=== PATIENT | female | born 1930 | race Caucasian/White ===

== ENCOUNTER → 2016-08-30 | Outpatient (CLI) | payer MEDICARE, MEDICAID ==
[~2016-08-30] MED LIST: AMA4; ASPI-867; BARIUM SULFATE 450ML ORAL SUSP ONE; CALC500T62; DILT-30; EZET10TA; IOHEXOL-300 100 ML BOTTLE ONE; LISI-186; LOVA20TA2; MESA400T14; METO50TA95; PANT40VI; SODIUM CHLORIDE 0.9% 10ML VIAL ONE; TIOT18CA3
== END | disposition home or self-care (01) ==
LOC: CT 08:21
PROVIDERS: ATTEND Internal Medicine Gastroenterology
DX: J44.9 Chronic obstructive pulmonary disease, unspecified (principal); R10.9 Unspecified abdominal pain; K76.89 Other specified diseases of liver
CPT/HCPCS: 74177; A4216; Q9967

== ENCOUNTER 2018-06-25 07:16 | Inpatient (IN) | payer MEDICARE, MEDICAID ==
[~2018-06-25] VITALS: Ht 157.5 cm; Wt 49.0 kg
[~2018-06-25 07:16] MED LIST changes: +ASA5EC; -ASPI-867; -BARIUM SULFATE 450ML ORAL SUSP ONE; -DILT-30; +DILT180C93; -EZET10TA; -IOHEXOL-300 100 ML BOTTLE ONE; +PILO15DR6 OP; -SODIUM CHLORIDE 0.9% 10ML VIAL ONE; +TIMO15DR12 OP; +ZET10
[2018-06-25] MEDS ORDERED: KETOROLAC 15MG/ML VIAL IV ONE (08:00)
[2018-06-25] MEDS ORDERED: DEXT 5%/0.45% NACL KCL 20MEQ/L 1,000 ML IV ONE (08:00)
[2018-06-25 08:26] LABS: HEMATOCRIT. 39.6 % (36.0-48.0); MEAN CORPUSCULAR HEMOGLOBIN 28.4 pg (28.0-32.0); MEAN CORPUSCULAR VOLUME 86.6 fL (81.0-99.0); MEAN PLATELET VOLUME 8.1 fl (7.4-10.4); PLATELET 475 x1000/uL (130-400); RED BLOOD CELL COUNT 4.57 mill/uL (4.2-5.4); RED CELL DISTRIBUTION WIDTH 18.3 % (11.6-14.6)
[2018-06-25 08:32] LABS: CHLORIDE 89 mEq/L (98-107)
[2018-06-25 08:38] LABS: INR 1.5; PARTIAL THROMBOPLASTIN TIME 33.2 sec (23.4-31.0); PROTHROMBIN TIME 15.3 sec (9.1-11.1)
[2018-06-25 09:05] LABS: PLATELET ESTIMATE INCREASED
[2018-06-25] MEDS ORDERED: MORPHINE SULFATE 2 MG/ML CPJ (NOT FOR IM USE) IV ONE (09:15)
[2018-06-25] MEDS ORDERED: MORPHINE SULFATE 10 MG/ML CPJ IV ONE (09:30)
[2018-06-25 10:30] VITALS: BP 118/52
[2018-06-25] MEDS ORDERED: PHYTONADIONE 10MG/ML AMP SUBCUT SCH (11:15)
[2018-06-25] MEDS: PANTOPRAZOLE SODIUM 40 MG/VIAL IV SCH (11:54)
[2018-06-25] MEDS: ENOXAPARIN 40MG/0.4ML SYR SUBCUT SCH (11:55)
[2018-06-25] MEDS: UMECLIDINIUM BROMIDE 1 INH BLST.W.DEV IH SCH (12:00)
[2018-06-25] MEDS: BLOOD SUGAR DIAGNOSTIC STRIP TEST SCH ×3 (12:04→21:56)
[2018-06-25] MEDS: INSULIN LISPRO 100 UNITS/ML SUBCUT SCH ×3 (12:58→21:00)
[2018-06-25] MEDS: SODIUM CHL 0.45% + KCL 20MEQ/L 1,000 ML IV SCH ×2 (13:00→22:01)
[2018-06-25] MEDS ORDERED: MIRA25TA MT (14:41)
[2018-06-25] MEDS ORDERED: OMEP10CA4 MT (14:41)
[2018-06-25] MEDS ORDERED: METF-414 MT (14:41)
[2018-06-25] MEDS ORDERED: FESO4TAB MT (14:41)
[2018-06-25] MEDS ORDERED: MESA0.37 MT (14:41)
[2018-06-25] MEDS ORDERED: OFLO5DRO3 RIGHTEYE (14:42)
[2018-06-25] MEDS: DILTIAZEM HCL 60MG TABLET PO SCH ×2 (15:57→21:57)
[2018-06-25] MEDS: FLUTICASONE/VILANTEROL 200-25 BLST.W.DEV ORI SCH (15:57)
[2018-06-25 17:37] LABS: CLARITY URINE TURBID (CLEAR); COLOR URINE DARK YELLOW (YELLOW); KETONES URINE 4+ (NEGATIVE); LEUKOCYTE ESTERASE URINE 2+ (NEGATIVE); NITRITE URINE NEGATIVE (NEGATIVE); OCCULT BLOOD URINE 2+ (NEGATIVE); PROTEIN URINE 2+ (NEGATIVE); SPECIFIC GRAVITY URINE 1.025 (1.005-1.030)
[2018-06-25 20:00] VITALS: BP 115/46
[2018-06-25] MEDS: HYDROCODONE/ACETAMINOPHEN 5/325MG TABLET PO PRN (20:11)
[2018-06-25] MEDS: ATORVASTATIN CALCIUM 20MG TABLET PO SCH (20:11)
[2018-06-25] MEDS: TIMOLOL MALEATE 0.25% OPHTH DROPS 5ML EACHEYE SCH (20:11)
[2018-06-25] MEDS: PILOCARPINE HCL 1% OPHTH DROPS 15ML BOTHEYE SCH (20:12)
[2018-06-26] VITALS: BP 110/44
[2018-06-26 04:00] VITALS: BP 127/51
[2018-06-26] MEDS: DILTIAZEM HCL 60MG TABLET PO SCH ×3 (05:02→22:31)
[2018-06-26 06:26] LABS: INR 1.2; PROTHROMBIN TIME 12.3 sec (9.1-11.1)
[2018-06-26] MEDS: INSULIN LISPRO 100 UNITS/ML SUBCUT SCH ×5 (06:26→22:19)
[2018-06-26] MEDS: BLOOD SUGAR DIAGNOSTIC STRIP TEST SCH ×4 (06:26→21:52)
[2018-06-26 06:41] LABS: HEMATOCRIT. 34.1 % (36.0-48.0); HEMOGLOBIN. 11.2 g/dL (12.0-16.0); MEAN CORPUSCULAR HEMOGLOBIN 28.5 pg (28.0-32.0); MEAN CORPUSCULAR VOLUME 86.9 fL (81.0-99.0); MEAN PLATELET VOLUME 8.7 fl (7.4-10.4); PLATELET 370 x1000/uL (130-400); RED BLOOD CELL COUNT 3.93 mill/uL (4.2-5.4); RED CELL DISTRIBUTION WIDTH 18.5 % (11.6-14.6)
[2018-06-26 06:44] LABS: CHLORIDE 92 mEq/L (98-107)
[2018-06-26 06:50] LABS: TOTAL IRON BINDING CAPACITY 333 ug/dL (250-450)
[2018-06-26 06:51] LABS: LDL CHOLESTEROL 46 mg/dL (5-100)
[2018-06-26 06:52] LABS: HDL CHOLESTEROL 20 mg/dL (40-59)
[2018-06-26 08:00] VITALS: BP 114/43
[2018-06-26] MEDS: ENOXAPARIN 40MG/0.4ML SYR SUBCUT SCH (08:26)
[2018-06-26] MEDS: UMECLIDINIUM BROMIDE 1 INH BLST.W.DEV IH SCH (09:00)
[2018-06-26] MEDS: PANTOPRAZOLE SODIUM 40 MG/VIAL IV SCH (09:07)
[2018-06-26] MEDS: TIMOLOL MALEATE 0.25% OPHTH DROPS 5ML EACHEYE SCH ×2 (09:08→20:12)
[2018-06-26] MEDS: PILOCARPINE HCL 1% OPHTH DROPS 15ML BOTHEYE SCH ×2 (09:08→20:12)
[2018-06-26] MEDS: FLUTICASONE/VILANTEROL 200-25 BLST.W.DEV ORI SCH (09:08)
[2018-06-26] MEDS: SODIUM CHL 0.45% + KCL 20MEQ/L 1,000 ML IV SCH ×2 (09:16→20:11)
[2018-06-26] MEDS: HYDROCODONE/ACETAMINOPHEN 5/325MG TABLET PO PRN (11:09)
[2018-06-26 12:00] VITALS: BP 110/43
[2018-06-26 16:00] VITALS: BP 105/48
[2018-06-26 16:00] LABS: PLATELET ESTIMATE NORMAL
[2018-06-26] MEDS ORDERED: CHLORHEXIDINE GLUCONATE 4% EXTERNAL USE TOP NR (16:00)
[2018-06-26] MEDS: PIPERACILLIN/TAZ 2.25G PREMIX 50 ML IV SCH ×2 (18:02→21:52)
[2018-06-26 20:00] VITALS: BP 124/58
[2018-06-26] MEDS: HYDROMORPHONE HCL/PF 2MG/ML CPJ IV PRN (20:18)
[2018-06-26] MEDS: ATORVASTATIN CALCIUM 20MG TABLET PO SCH (21:52)
[2018-06-27] VITALS: BP 134/59
[2018-06-27] MEDS: PIPERACILLIN/TAZ 2.25G PREMIX 50 ML IV SCH ×4 (03:12→22:07)
[2018-06-27 04:00] VITALS: BP 123/57
[2018-06-27] MEDS: SODIUM CHL 0.45% + KCL 20MEQ/L 1,000 ML IV SCH ×2 (04:08→14:00)
[2018-06-27] MEDS: HYDROMORPHONE HCL/PF 2MG/ML CPJ IV PRN ×3 (04:18→17:54)
[2018-06-27 04:50] LABS: CHLORIDE 89 mEq/L (98-107)
[2018-06-27 05:03] LABS: PHOSPHORUS 1.8 mg/dL (2.5-4.9)
[2018-06-27] MEDS: DILTIAZEM HCL 60MG TABLET PO SCH (05:49)
[2018-06-27] MEDS ORDERED: MAGNESIUM 2 G PREMIX 50 ML IV SCH (06:00)
[2018-06-27 06:17] LABS: HEMATOCRIT. 34.7 % (36.0-48.0); HEMOGLOBIN. 11.6 g/dL (12.0-16.0); MEAN CORPUSCULAR HEMOGLOBIN 28.8 pg (28.0-32.0); MEAN CORPUSCULAR VOLUME 86.4 fL (81.0-99.0); MEAN PLATELET VOLUME 8.6 fl (7.4-10.4); PLATELET 368 x1000/uL (130-400); RED BLOOD CELL COUNT 4.02 mill/uL (4.2-5.4); RED CELL DISTRIBUTION WIDTH 17.5 % (11.6-14.6)
[2018-06-27] MEDS: BLOOD SUGAR DIAGNOSTIC STRIP TEST SCH ×4 (07:44→21:55)
[2018-06-27 08:00] VITALS: BP 119/51
[2018-06-27] MEDS ORDERED: ENOXAPARIN 30MG/0.3ML SYR SUBCUT SCH (09:00)
[2018-06-27] MEDS: PANTOPRAZOLE SODIUM 40 MG/VIAL IV SCH (09:34)
[2018-06-27] MEDS: UMECLIDINIUM BROMIDE 1 INH BLST.W.DEV IH SCH (09:35)
[2018-06-27] MEDS: FLUTICASONE/VILANTEROL 200-25 BLST.W.DEV ORI SCH (09:37)
[2018-06-27] MEDS: TIMOLOL MALEATE 0.25% OPHTH DROPS 5ML EACHEYE SCH ×2 (09:38→21:05)
[2018-06-27] MEDS: PILOCARPINE HCL 1% OPHTH DROPS 15ML BOTHEYE SCH ×2 (09:38→21:05)
[2018-06-27 12:00] VITALS: BP 98/45
[2018-06-27] MEDS: INSULIN LISPRO 100 UNITS/ML SUBCUT SCH ×3 (13:49→22:48)
[2018-06-27 16:00] VITALS: BP 113/50
[2018-06-27 17:34] LABS: PLATELET ESTIMATE NORMAL
[2018-06-27 20:00] VITALS: BP 100/46
[2018-06-27] MEDS ORDERED: POTASSIUM PHOS,M-BASIC-D-BASIC 20 MMOL in DEXT 5% WATER 243.3333 ML IV ONE (21:00)
[2018-06-27] MEDS: ATORVASTATIN CALCIUM 20MG TABLET PO SCH (21:05)
[2018-06-27] MEDS: METOPROLOL TARTRATE 50MG TABLET PO SCH (21:12)
[2018-06-28] VITALS: BP 125/59
[2018-06-28] MEDS: HYDROCODONE/ACETAMINOPHEN 5/325MG TABLET PO PRN (00:59)
[2018-06-28] MEDS: SODIUM CHL 0.45% + KCL 20MEQ/L 1,000 ML IV SCH ×2 (01:02→20:42)
[2018-06-28] MEDS: PIPERACILLIN/TAZ 2.25G PREMIX 50 ML IV SCH ×4 (03:23→23:48)
[2018-06-28 04:00] VITALS: BP 113/44
[2018-06-28 05:48] LABS: HEMATOCRIT. 35.7 % (36.0-48.0); HEMOGLOBIN. 11.9 g/dL (12.0-16.0); MEAN CORPUSCULAR HEMOGLOBIN 28.6 pg (28.0-32.0); PLATELET 396 x1000/uL (130-400); RED BLOOD CELL COUNT 4.16 mill/uL (4.2-5.4)
[2018-06-28 05:50] LABS: CHLORIDE 86 mEq/L (98-107)
[2018-06-28 05:58] LABS: D-DIMER 2.35 mg/L FEU (<0.50); INR 1.2; PROTHROMBIN TIME 12.2 sec (9.1-11.1)
[2018-06-28] MEDS: BLOOD SUGAR DIAGNOSTIC STRIP TEST SCH ×4 (06:35→20:52)
[2018-06-28] MEDS ORDERED: PROPOFOL 200MG/20ML VIAL IV ONE (07:02)
[2018-06-28] MEDS ORDERED: ROCURONIUM BROMIDE 10MG/ML VIAL 5ML IV ONE (07:02)
[2018-06-28] MEDS ORDERED: FENTANYL CITRATE/PF 50MCG/ML 2ML VIAL ONE (07:02)
[2018-06-28] MEDS ORDERED: MIDAZOLAM HCL 2 MG/2 ML VIAL ONE (07:03)
[2018-06-28] MEDS ORDERED: DEXAMETHASONE 4MG/ML 1ML VIAL ONE (07:09)
[2018-06-28] MEDS ORDERED: METOCLOPRAMIDE HCL 10MG/2ML VIAL ONE (07:09)
[2018-06-28] MEDS ORDERED: BUPIVACAINE HCL/PF 0.25% (2.5MG/ML) 10ML ONE (07:31)
[2018-06-28] MEDS ORDERED: BACITRACIN 15GM TUBE TOP ONE (07:43)
[2018-06-28] MEDS ORDERED: BUPIVACAINE/EPINEPH/PF 0.25%/0.0005 10ML ONE (07:43)
[2018-06-28] MEDS ORDERED: BACITRACIN 50,000 UNITS/VIAL ONE (07:43)
[2018-06-28] MEDS ORDERED: VANCOMYCIN HCL 500 MG/VIAL ONE ×2 (07:44→09:15)
[2018-06-28] MEDS ORDERED: NORMAL SALINE 0.9% 10 ML SYR ONE (07:45)
[2018-06-28] MEDS ORDERED: INSULIN REGULAR (HUMULIN R) 300UNITS/3ML ONE (07:47)
[2018-06-28] MEDS: INSULIN LISPRO 100 UNITS/ML SUBCUT SCH ×4 (07:50→20:52)
[2018-06-28] MEDS ORDERED: ONDANSETRON HCL 4MG/2ML INJ IV PRN (08:30)
[2018-06-28] MEDS ORDERED: HYDROMORPHONE HCL/PF 2MG/ML CPJ IV PRN ×2 (08:30→10:30)
[2018-06-28] MEDS ORDERED: PIPERACILLIN/TAZ 2.25G PREMIX 50 ML IV SCH (08:30)
[2018-06-28] MEDS ORDERED: HYDROCODONE/ACETAMINOPHEN 5/325MG TABLET PO PRN ×2 (08:30)
[2018-06-28] MEDS: UMECLIDINIUM BROMIDE 1 INH BLST.W.DEV IH SCH (09:00)
[2018-06-28] MEDS: TIMOLOL MALEATE 0.25% OPHTH DROPS 5ML EACHEYE SCH ×2 (09:00→20:42)
[2018-06-28] MEDS: PANTOPRAZOLE SODIUM 40 MG/VIAL IV SCH (09:00)
[2018-06-28] MEDS: FLUTICASONE/VILANTEROL 200-25 BLST.W.DEV ORI SCH (09:00)
[2018-06-28] MEDS: PILOCARPINE HCL 1% OPHTH DROPS 15ML BOTHEYE SCH ×2 (09:00→20:42)
[2018-06-28] MEDS: METOPROLOL TARTRATE 50MG TABLET PO SCH ×2 (09:00→20:42)
[2018-06-28] MEDS ORDERED: PHENYLEPHRINE HCL 10 MG/ML 1ML (IV VIAL) IV ONE (09:25)
[2018-06-28] MEDS ORDERED: GLYCOPYRROLATE 0.2 MG/ML 2ML VIAL ONE (09:53)
[2018-06-28] MEDS ORDERED: NEOSTIGMINE METHYLSULFATE 1MG/ML 10 ML VIAL ONE (09:53)
[2018-06-28] MEDS ORDERED: MEPERIDINE HCL/PF 25MG/ML CPJ IV PRN (10:30)
[2018-06-28] MEDS ORDERED: ACETAMINOPHEN 325MG TABLET PO SCH (10:30)
[2018-06-28 13:07] LABS: PLATELET ESTIMATE NORMAL
[2018-06-28 13:30] VITALS: BP 98/46
[2018-06-28 14:35] LABS: BG BASE EXCESS 4.6 mmol/L (-2.0-2.0); BG CARBOXYHEMOGLOBIN 1.3 % (0.5-1.5); BG DEOXYHEMOGLOBIN 5.7 % (0.0-5.0); BG FRACTION INSPIRED OXYGEN 2.5; BG HCO3 ACT 29.8 mmol/L (22.0-26.0); BG METHEMOGLOBIN 0.3 % (0.0-1.5); BG OXYGEN SATURATION 94.2 % (92.0-98.5); BG OXYHEMOGLOBIN 92.7 % (94.0-97.0); BG PO2 70.7 mmHg (75.0-100.0); BG SAMPLE SITE RIGHT BRACHIAL; BG TOTAL HEMOGLOBIN 11.8 g/dL (12.0-18.0); BG VENT MODE NASAL CANNULA
[2018-06-28 16:00] VITALS: BP 129/77
[2018-06-28] MEDS: ACETAMINOPHEN 325MG TABLET PO PRN (18:41)
[2018-06-28] MEDS: ATORVASTATIN CALCIUM 20MG TABLET PO SCH (20:42)
[2018-06-28 20:43] VITALS: BP 99/42
[2018-06-29 00:36] VITALS: BP 108/54
[2018-06-29] MEDS: PIPERACILLIN/TAZ 2.25G PREMIX 50 ML IV SCH (03:55)
[2018-06-29 04:00] VITALS: BP 109/48
[2018-06-29] MEDS: BLOOD SUGAR DIAGNOSTIC STRIP TEST SCH ×4 (06:40→21:52)
[2018-06-29 07:47] LABS: HEMATOCRIT. 31.8 % (36.0-48.0); HEMOGLOBIN. 10.6 g/dL (12.0-16.0); MEAN CORPUSCULAR HEMOGLOBIN 29.1 pg (28.0-32.0); MEAN CORPUSCULAR VOLUME 86.9 fL (81.0-99.0); MEAN PLATELET VOLUME 8.6 fl (7.4-10.4); PLATELET 345 x1000/uL (130-400); RED BLOOD CELL COUNT 3.66 mill/uL (4.2-5.4)
[2018-06-29] MEDS: INSULIN LISPRO 100 UNITS/ML SUBCUT SCH ×4 (07:50→22:03)
[2018-06-29] MEDS ORDERED: MAGNESIUM 2 G PREMIX 50 ML IV SCH (08:00)
[2018-06-29] MEDS: METOPROLOL TARTRATE 50MG TABLET PO SCH ×2 (09:00→21:00)
[2018-06-29] MEDS: TIMOLOL MALEATE 0.25% OPHTH DROPS 5ML EACHEYE SCH ×2 (09:00→21:52)
[2018-06-29] MEDS: PILOCARPINE HCL 1% OPHTH DROPS 15ML BOTHEYE SCH ×2 (09:00→21:51)
[2018-06-29] MEDS: UMECLIDINIUM BROMIDE 1 INH BLST.W.DEV IH SCH (09:00)
[2018-06-29] MEDS ORDERED: FAMOTIDINE 20MG/2ML VIAL IV SCH (09:00)
[2018-06-29] MEDS: FLUTICASONE/VILANTEROL 200-25 BLST.W.DEV ORI SCH (09:00)
[2018-06-29] MEDS: LACTULOSE 20G/30ML UDC PO SCH ×3 (10:12→18:47)
[2018-06-29 10:17] LABS: CHLORIDE 90 mEq/L (98-107)
[2018-06-29] MEDS: ENOXAPARIN 30MG/0.3ML SYR SUBCUT SCH (10:17)
[2018-06-29 10:27] LABS: PHOSPHORUS 2.1 mg/dL (2.5-4.9)
[2018-06-29 12:00] VITALS: BP 125/49
[2018-06-29 13:22] LABS: PLATELET ESTIMATE NORMAL
[2018-06-29 15:49] VITALS: BP 111/54
[2018-06-29] MEDS: DOCUSATE SODIUM 100MG CAPSULE PO SCH (18:48)
[2018-06-29 20:00] VITALS: BP 110/53
[2018-06-29] MEDS: ATORVASTATIN CALCIUM 20MG TABLET PO SCH (21:52)
[2018-06-29] MEDS: FAMOTIDINE 20MG TABLET PO SCH (21:52)
[2018-06-29] MEDS: POLYETHYLENE GLYCOL 3350 (17GM) 1 DOSE PACK PO SCH (21:52)
[2018-06-30] VITALS: BP 116/58
[2018-06-30 04:00] VITALS: BP 119/57
[2018-06-30 07:01] LABS: HEMATOCRIT. 26.9 % (36.0-48.0); MEAN CORPUSCULAR HEMOGLOBIN 28.9 pg (28.0-32.0); MEAN CORPUSCULAR VOLUME 86.4 fL (81.0-99.0); PLATELET 332 x1000/uL (130-400); RED BLOOD CELL COUNT 3.11 mill/uL (4.2-5.4); RED CELL DISTRIBUTION WIDTH 17.7 % (11.6-14.6)
[2018-06-30 07:10] LABS: CHLORIDE 90 mEq/L (98-107)
[2018-06-30] MEDS: BLOOD SUGAR DIAGNOSTIC STRIP TEST SCH ×4 (07:28→21:30)
[2018-06-30] MEDS: INSULIN LISPRO 100 UNITS/ML SUBCUT SCH ×4 (07:28→22:12)
[2018-06-30] MEDS: METOPROLOL TARTRATE 50MG TABLET PO SCH ×2 (08:23→21:00)
[2018-06-30] MEDS: DOCUSATE SODIUM 100MG CAPSULE PO SCH ×2 (08:24→17:25)
[2018-06-30] MEDS: FAMOTIDINE 20MG TABLET PO SCH ×2 (08:24→21:27)
[2018-06-30] MEDS: PILOCARPINE HCL 1% OPHTH DROPS 15ML BOTHEYE SCH ×2 (08:25→21:30)
[2018-06-30] MEDS: TIMOLOL MALEATE 0.25% OPHTH DROPS 5ML EACHEYE SCH ×2 (08:25→21:29)
[2018-06-30] MEDS: UMECLIDINIUM BROMIDE 1 INH BLST.W.DEV IH SCH (08:26)
[2018-06-30] MEDS: FLUTICASONE/VILANTEROL 200-25 BLST.W.DEV ORI SCH (08:26)
[2018-06-30] MEDS: ENOXAPARIN 30MG/0.3ML SYR SUBCUT SCH (08:27)
[2018-06-30 08:30] VITALS: BP 122/60
[2018-06-30] MEDS ORDERED: POTASSIUM BICARB/CIT ACID 25 MEQ TABLET.EFF PO SCH (11:00)
[2018-06-30 11:19] LABS: PLATELET ESTIMATE NORMAL
[2018-06-30] MEDS: HYDROMORPHONE HCL/PF 2MG/ML CPJ IV PRN (12:00)
[2018-06-30] MEDS ORDERED: MAGNESIUM 2 G PREMIX 50 ML IV SCH (12:00)
[2018-06-30 12:14] VITALS: BP 104/51
[2018-06-30] MEDS ORDERED: BISACODYL 10MG SUPP PR SCH (13:00)
[2018-06-30] MEDS: LACTULOSE 20G/30ML UDC PO SCH ×3 (13:27→21:27)
[2018-06-30] MEDS: MESALAMINE 400 MG CAPSULE.DR PO SCH ×2 (13:29→18:34)
[2018-06-30 16:07] VITALS: BP 96/45
[2018-06-30 20:00] VITALS: BP 104/53
[2018-06-30] MEDS: OFEV 100 MG PO SCH (20:40)
[2018-06-30] MEDS: POLYETHYLENE GLYCOL 3350 (17GM) 1 DOSE PACK PO SCH ×2 (21:27→21:31)
[2018-06-30] MEDS: ATORVASTATIN CALCIUM 20MG TABLET PO SCH (21:27)
[2018-07-01] VITALS: BP 124/59
[2018-07-01 04:00] VITALS: BP 129/60
[2018-07-01 04:10] LABS: 25-HYDROXY VITAMIN D3 2.5 ng/mL (.)
[2018-07-01 05:40] LABS: CHLORIDE 87 mEq/L (98-107)
[2018-07-01] MEDS: BLOOD SUGAR DIAGNOSTIC STRIP TEST SCH ×4 (07:30→21:32)
[2018-07-01] MEDS: INSULIN LISPRO 100 UNITS/ML SUBCUT SCH ×4 (07:31→21:34)
[2018-07-01 08:00] VITALS: BP 127/61
[2018-07-01] MEDS: MESALAMINE 400 MG CAPSULE.DR PO SCH ×3 (08:14→18:10)
[2018-07-01] MEDS: FAMOTIDINE 20MG TABLET PO SCH ×2 (08:14→21:31)
[2018-07-01] MEDS: OFEV 100 MG PO SCH ×2 (08:15→20:25)
[2018-07-01] MEDS: TIMOLOL MALEATE 0.25% OPHTH DROPS 5ML EACHEYE SCH ×2 (08:16→21:29)
[2018-07-01] MEDS: FLUTICASONE/VILANTEROL 200-25 BLST.W.DEV ORI SCH (08:16)
[2018-07-01] MEDS: PILOCARPINE HCL 1% OPHTH DROPS 15ML BOTHEYE SCH ×2 (08:16→21:29)
[2018-07-01] MEDS: UMECLIDINIUM BROMIDE 1 INH BLST.W.DEV IH SCH (08:17)
[2018-07-01] MEDS: METOPROLOL TARTRATE 50MG TABLET PO SCH ×2 (08:22→21:32)
[2018-07-01] MEDS: DOCUSATE SODIUM 100MG CAPSULE PO SCH ×2 (09:00→17:00)
[2018-07-01 12:00] VITALS: BP 134/62
[2018-07-01] MEDS: MAGNESIUM OXIDE 400MG TABLET PO SCH ×2 (13:12→18:10)
[2018-07-01] MEDS: HYDROMORPHONE HCL/PF 2MG/ML CPJ IV PRN (13:12)
[2018-07-01] MEDS ORDERED: MAGNESIUM 2 G PREMIX 50 ML IV NR (14:00)
[2018-07-01 16:00] VITALS: BP 131/72
[2018-07-01 20:00] VITALS: BP 138/63
[2018-07-01] MEDS: ATORVASTATIN CALCIUM 20MG TABLET PO SCH (21:30)
[2018-07-01] MEDS: POLYETHYLENE GLYCOL 3350 (17GM) 1 DOSE PACK PO SCH (21:37)
[2018-07-02] VITALS: BP 139/61
[2018-07-02 04:00] VITALS: BP 120/82
[2018-07-02 06:19] LABS: CHLORIDE 87 mEq/L (98-107)
[2018-07-02 06:25] LABS: PHOSPHORUS 1.6 mg/dL (2.5-4.9)
[2018-07-02] MEDS: BLOOD SUGAR DIAGNOSTIC STRIP TEST SCH ×4 (06:28→21:17)
[2018-07-02 06:30] LABS: BASOPHILS % 0.3 % (0.0-2.0); EOSINOPHILS % 0.1 % (0.0-5.0); LYMPHOCYTES % 8.9 % (20.0-50.0); MEAN CORPUSCULAR HEMOGLOBIN 28.6 pg (28.0-32.0); MEAN CORPUSCULAR VOLUME 86.6 fL (81.0-99.0); MEAN PLATELET VOLUME 8.1 fl (7.4-10.4); NEUTROPHILS % 86.7 % (40.0-76.0); PLATELET 408 x1000/uL (130-400); RED BLOOD CELL COUNT 3.69 mill/uL (4.2-5.4); RED CELL DISTRIBUTION WIDTH 17.6 % (11.6-14.6)
[2018-07-02 07:33] LABS: HEMATOCRIT. 31.9 % (36.0-48.0); HEMOGLOBIN. 10.6 g/dL (12.0-16.0)
[2018-07-02] MEDS: INSULIN LISPRO 100 UNITS/ML SUBCUT SCH ×4 (07:51→21:00)
[2018-07-02] MEDS: OFEV 100 MG PO SCH ×2 (07:52→21:21)
[2018-07-02] MEDS: MAGNESIUM OXIDE 400MG TABLET PO SCH ×2 (07:52→17:37)
[2018-07-02] MEDS: DOCUSATE SODIUM 100MG CAPSULE PO SCH ×2 (07:52→17:00)
[2018-07-02] MEDS: MESALAMINE 400 MG CAPSULE.DR PO SCH ×3 (07:57→17:00)
[2018-07-02] MEDS: METOPROLOL TARTRATE 50MG TABLET PO SCH ×2 (07:57→21:19)
[2018-07-02] MEDS: FAMOTIDINE 20MG TABLET PO SCH ×2 (07:57→21:17)
[2018-07-02] MEDS: PILOCARPINE HCL 1% OPHTH DROPS 15ML BOTHEYE SCH ×2 (07:57→21:19)
[2018-07-02] MEDS: TIMOLOL MALEATE 0.25% OPHTH DROPS 5ML EACHEYE SCH ×2 (07:58→21:19)
[2018-07-02] MEDS: FLUTICASONE/VILANTEROL 200-25 BLST.W.DEV ORI SCH (07:58)
[2018-07-02] MEDS: UMECLIDINIUM BROMIDE 1 INH BLST.W.DEV IH SCH (07:58)
[2018-07-02 08:00] VITALS: BP 137/71
[2018-07-02 12:00] VITALS: BP 117/63
[2018-07-02 16:00] VITALS: BP 112/61
[2018-07-02] MEDS: ASPIRIN 81MG TABLET PO SCH (17:38)
[2018-07-02] MEDS ORDERED: MAGNESIUM 2 G PREMIX 50 ML IV NR (18:30)
[2018-07-02 20:00] VITALS: BP 129/64
[2018-07-02] MEDS: POLYETHYLENE GLYCOL 3350 (17GM) 1 DOSE PACK PO SCH (21:00)
[2018-07-02] MEDS: ATORVASTATIN CALCIUM 20MG TABLET PO SCH (21:17)
[2018-07-02] MEDS ORDERED: SODIUM PHOS,M-BASIC-D-BASIC 30 MM in DEXT 5% WATER 500 ML IV NR (22:00)
[2018-07-03] VITALS: BP 136/69
[2018-07-03 04:00] VITALS: BP 130/60
[2018-07-03 06:34] LABS: BASOPHILS % 0.2 % (0.0-2.0); EOSINOPHILS % 0.1 % (0.0-5.0); HEMATOCRIT. 33.8 % (36.0-48.0); LYMPHOCYTES % 8.5 % (20.0-50.0); MEAN CORPUSCULAR HEMOGLOBIN 28.1 pg (28.0-32.0); MEAN CORPUSCULAR VOLUME 86.3 fL (81.0-99.0); MEAN PLATELET VOLUME 8.6 fl (7.4-10.4); MONOCYTES % 4.9 % (2.0-8.0); NEUTROPHILS % 86.3 % (40.0-76.0); PLATELET 398 x1000/uL (130-400); RED BLOOD CELL COUNT 3.91 mill/uL (4.2-5.4)
[2018-07-03] MEDS: BLOOD SUGAR DIAGNOSTIC STRIP TEST SCH ×4 (06:43→21:00)
[2018-07-03] MEDS: DRONABINOL 2.5MG CAPSULE PO SCH ×2 (06:43→17:34)
[2018-07-03 08:00] VITALS: BP 124/80
[2018-07-03 08:04] LABS: CHLORIDE 85 mEq/L (98-107)
[2018-07-03 08:09] LABS: PHOSPHORUS 4.6 mg/dL (2.5-4.9)
[2018-07-03] MEDS: METOPROLOL TARTRATE 50MG TABLET PO SCH ×2 (09:09→21:00)
[2018-07-03] MEDS: DOCUSATE SODIUM 100MG CAPSULE PO SCH ×2 (09:09→17:34)
[2018-07-03] MEDS: MAGNESIUM OXIDE 400MG TABLET PO SCH ×2 (09:09→17:34)
[2018-07-03] MEDS: MESALAMINE 400 MG CAPSULE.DR PO SCH ×3 (09:09→17:34)
[2018-07-03] MEDS: ASPIRIN 81MG TABLET PO SCH ×2 (09:10→17:34)
[2018-07-03] MEDS: FAMOTIDINE 20MG TABLET PO SCH ×2 (09:10→21:34)
[2018-07-03] MEDS: OFEV 100 MG PO SCH ×2 (09:10→21:36)
[2018-07-03] MEDS: TIMOLOL MALEATE 0.25% OPHTH DROPS 5ML EACHEYE SCH ×2 (09:11→21:35)
[2018-07-03] MEDS: UMECLIDINIUM BROMIDE 1 INH BLST.W.DEV IH SCH (09:11)
[2018-07-03] MEDS: PILOCARPINE HCL 1% OPHTH DROPS 15ML BOTHEYE SCH ×2 (09:11→21:35)
[2018-07-03] MEDS: INSULIN LISPRO 100 UNITS/ML SUBCUT SCH ×4 (09:39→21:00)
[2018-07-03] MEDS: FLUTICASONE/VILANTEROL 200-25 BLST.W.DEV ORI SCH (09:48)
[2018-07-03 11:39] VITALS: BP 110/63
[2018-07-03 16:00] VITALS: BP 110/53
[2018-07-03 20:35] VITALS: BP 101/58
[2018-07-03] MEDS: ATORVASTATIN CALCIUM 20MG TABLET PO SCH (21:34)
[2018-07-03] MEDS: POLYETHYLENE GLYCOL 3350 (17GM) 1 DOSE PACK PO SCH (21:34)
[2018-07-04] VITALS: BP 116/61
[2018-07-04 04:00] VITALS: BP 120/51
[2018-07-04] MEDS: BLOOD SUGAR DIAGNOSTIC STRIP TEST SCH ×4 (06:41→21:16)
[2018-07-04] MEDS: DRONABINOL 2.5MG CAPSULE PO SCH ×2 (06:41→18:11)
[2018-07-04 07:44] LABS: BASOPHILS % 0.1 % (0.0-2.0); EOSINOPHILS % 0.2 % (0.0-5.0); HEMATOCRIT. 30.8 % (36.0-48.0); HEMOGLOBIN. 10.3 g/dL (12.0-16.0); LYMPHOCYTES % 8.2 % (20.0-50.0); MEAN CORPUSCULAR HEMOGLOBIN 28.8 pg (28.0-32.0); MEAN PLATELET VOLUME 8.3 fl (7.4-10.4); MONOCYTES % 3.8 % (2.0-8.0); NEUTROPHILS % 87.7 % (40.0-76.0); PLATELET 374 x1000/uL (130-400); RED BLOOD CELL COUNT 3.58 mill/uL (4.2-5.4); RED CELL DISTRIBUTION WIDTH 17.7 % (11.6-14.6)
[2018-07-04 08:03] LABS: CHLORIDE 86 mEq/L (98-107)
[2018-07-04] MEDS: INSULIN LISPRO 100 UNITS/ML SUBCUT SCH ×4 (08:39→21:00)
[2018-07-04] MEDS: OFEV 100 MG PO SCH ×2 (08:40→21:15)
[2018-07-04] MEDS: METOPROLOL TARTRATE 50MG TABLET PO SCH ×2 (09:00→21:00)
[2018-07-04] MEDS: PILOCARPINE HCL 1% OPHTH DROPS 15ML BOTHEYE SCH ×2 (09:23→21:15)
[2018-07-04] MEDS: UMECLIDINIUM BROMIDE 1 INH BLST.W.DEV IH SCH (09:23)
[2018-07-04] MEDS: TIMOLOL MALEATE 0.25% OPHTH DROPS 5ML EACHEYE SCH ×2 (09:23→21:16)
[2018-07-04] MEDS: FAMOTIDINE 20MG TABLET PO SCH ×2 (09:24→21:15)
[2018-07-04] MEDS: MAGNESIUM OXIDE 400MG TABLET PO SCH ×2 (09:24→18:13)
[2018-07-04] MEDS: DOCUSATE SODIUM 100MG CAPSULE PO SCH ×2 (09:24→18:14)
[2018-07-04] MEDS: ASPIRIN 81MG TABLET PO SCH ×2 (09:24→18:13)
[2018-07-04] MEDS: MESALAMINE 400 MG CAPSULE.DR PO SCH ×3 (09:24→18:09)
[2018-07-04] MEDS: FLUTICASONE/VILANTEROL 200-25 BLST.W.DEV ORI SCH (09:25)
[2018-07-04 10:46] LABS: T4 FREE 1.09 ng/dL (0.76-1.46)
[2018-07-04 10:54] LABS: FOLIC ACID (FOLATE) SERUM 6.9 ng/mL (>5.38)
[2018-07-04 16:00] VITALS: BP 110/56
[2018-07-04] MEDS: CYANOCOBALAMIN 1000MCG/ML VIAL IM SCH (19:13)
[2018-07-04] MEDS: LACTULOSE 20G/30ML UDC PO SCH (19:13)
[2018-07-04 20:30] VITALS: BP 115/59
[2018-07-04] MEDS: ATORVASTATIN CALCIUM 20MG TABLET PO SCH (21:15)
[2018-07-04] MEDS: POLYETHYLENE GLYCOL 3350 (17GM) 1 DOSE PACK PO SCH (21:15)
[2018-07-05] VITALS (49 sets, daily range): BP systolic 63–129; BP diastolic 30–74
[2018-07-05] MEDS ORDERED: IPRATROPIUM/ALBUTEROL 0.5-3(2.5)MG/3ML NEB HHN PRN (06:30)
[2018-07-05 06:34] LABS: HEMATOCRIT. 32.1 % (36.0-48.0); HEMOGLOBIN. 10.8 g/dL (12.0-16.0); MEAN CORPUSCULAR HEMOGLOBIN 29.4 pg (28.0-32.0); MEAN PLATELET VOLUME 9.4 fl (7.4-10.4); PLATELET 325 x1000/uL (130-400); RED BLOOD CELL COUNT 3.69 mill/uL (4.2-5.4); RED CELL DISTRIBUTION WIDTH 18.1 % (11.6-14.6)
[2018-07-05] MEDS: BLOOD SUGAR DIAGNOSTIC STRIP TEST SCH ×4 (06:43→21:21)
[2018-07-05 07:08] LABS: CHLORIDE 84 mEq/L (98-107)
[2018-07-05] MEDS: DRONABINOL 2.5MG CAPSULE PO SCH (07:20)
[2018-07-05] MEDS: INSULIN LISPRO 100 UNITS/ML SUBCUT SCH ×3 (07:50→21:25)
[2018-07-05] MEDS: DOCUSATE SODIUM 100MG CAPSULE PO SCH ×2 (09:00→16:08)
[2018-07-05] MEDS: CYANOCOBALAMIN 1000MCG/ML VIAL IM SCH (09:00)
[2018-07-05] MEDS: METOPROLOL TARTRATE 50MG TABLET PO SCH ×2 (09:00→21:00)
[2018-07-05] MEDS: ASPIRIN 81MG TABLET PO SCH (09:00)
[2018-07-05] MEDS: LACTULOSE 20G/30ML UDC PO SCH ×2 (09:00→16:07)
[2018-07-05] MEDS: TIMOLOL MALEATE 0.25% OPHTH DROPS 5ML EACHEYE SCH ×2 (09:00→21:24)
[2018-07-05] MEDS: MESALAMINE 400 MG CAPSULE.DR PO SCH ×3 (09:00→16:07)
[2018-07-05] MEDS: MAGNESIUM OXIDE 400MG TABLET PO SCH (09:00)
[2018-07-05] MEDS: PANTOPRAZOLE SODIUM 40 MG/VIAL IV SCH ×2 (09:00→21:22)
[2018-07-05] MEDS: PILOCARPINE HCL 1% OPHTH DROPS 15ML BOTHEYE SCH ×2 (09:00→21:24)
[2018-07-05 10:13] LABS: PLATELET ESTIMATE NORMAL
[2018-07-05] MEDS ORDERED: FUROSEMIDE 20MG/2ML VIAL IVP NR (11:45)
[2018-07-05] MEDS ORDERED: PHENYLEPHRINE 20 MG in DEXT 5% WATER 248 ML IV PRN (12:45)
[2018-07-05] MEDS ORDERED: PROPOFOL 10MG/ML 100ML 100 ML IV PRN (12:45)
[2018-07-05] MEDS ORDERED: SODIUM CHLORIDE 0.9% 250 ML IV NR (13:45)
[2018-07-05] MEDS ORDERED: SODIUM CHLORIDE 3% 300 ML IV NR (14:00)
[2018-07-05] MEDS ORDERED: EPINEPHRINE 0.1MG/ML (1:10,000) 10ML SYR ONE (14:07)
[2018-07-05] MEDS ORDERED: ATROPINE SULFATE 1MG/10ML SYR ONE (14:07)
[2018-07-05] MEDS: NOREPINEPHRINE 16 MG in DEXT 5% WATER 234 ML IV PRN (14:53)
[2018-07-05] MEDS ORDERED: PHENYLEPHRINE 40 MG in DEXT 5% WATER 496 ML IV PRN (15:00)
[2018-07-05] MEDS ORDERED: PHENYLEPHRINE 40 MG in DEXTROSE 5% WATER 250 ML IV PRN (15:00)
[2018-07-05] MEDS: DEXT 5%/0.45% NACL KCL 20MEQ/L 1,000 ML IV SCH (15:54)
[2018-07-05] MEDS: MAGNESIUM OXIDE 400MG TABLET NG SCH (16:07)
[2018-07-05] MEDS: POLYETHYLENE GLYCOL 3350 (17GM) 1 DOSE PACK PO SCH ×2 (21:00→21:24)
[2018-07-05] MEDS ORDERED: GUAIFENESIN 600MG ER TABLET PO SCH (21:00)
[2018-07-05 22:07] LABS: BG CARBOXYHEMOGLOBIN 0.2 % (0.5-1.5); BG FRACTION INSPIRED OXYGEN 50; BG HCO3 ACT 25.2 mmol/L (22.0-26.0); BG METHEMOGLOBIN 0.1 % (0.0-1.5); BG OXYHEMOGLOBIN 97.7 % (94.0-97.0); BG PCO2 30.1 mmHg (35.0-45.0); BG PH 7.541 (7.350-7.450); BG PO2 106.5 mmHg (75.0-100.0); BG SAMPLE SITE RIGHT BRACHIAL; BG TIDAL VOLUME(mL) 500 mL; BG TOTAL HEMOGLOBIN 10.1 g/dL (12.0-18.0); BG VENT MODE VENT - A/C; BG VENT RATE 12 set
[2018-07-06] VITALS (67 sets, daily range): BP systolic 69–138; BP diastolic 23–74
[2018-07-06 05:02] LABS: HEMATOCRIT. 27.1 % (36.0-48.0); HEMOGLOBIN. 8.9 g/dL (12.0-16.0); MEAN CORPUSCULAR HEMOGLOBIN 28.8 pg (28.0-32.0); MEAN CORPUSCULAR VOLUME 87.4 fL (81.0-99.0); MEAN PLATELET VOLUME 8.7 fl (7.4-10.4); PLATELET 299 x1000/uL (130-400); RED CELL DISTRIBUTION WIDTH 18.3 % (11.6-14.6)
[2018-07-06 05:04] LABS: CHLORIDE 85 mEq/L (98-107)
[2018-07-06 05:13] LABS: CREATINE KINASE 141 IU/L (26-192)
[2018-07-06 05:15] LABS: CREATINE KINASE MB FRACTION 1.3 ng/mL (0.5-3.6)
[2018-07-06] MEDS: BLOOD SUGAR DIAGNOSTIC STRIP TEST SCH ×4 (06:43→21:27)
[2018-07-06] MEDS: INSULIN LISPRO 100 UNITS/ML SUBCUT SCH ×4 (06:50→21:27)
[2018-07-06] MEDS: METOPROLOL TARTRATE 50MG TABLET PO SCH ×2 (08:41→21:00)
[2018-07-06] MEDS: MAGNESIUM OXIDE 400MG TABLET NG SCH ×2 (08:52→16:50)
[2018-07-06] MEDS: PANTOPRAZOLE SODIUM 40 MG/VIAL IV SCH ×2 (08:52→21:20)
[2018-07-06] MEDS: DOCUSATE SODIUM 100MG CAPSULE PO SCH ×2 (08:52→16:51)
[2018-07-06] MEDS: MESALAMINE 400 MG CAPSULE.DR PO SCH ×3 (08:52→16:50)
[2018-07-06] MEDS: CYANOCOBALAMIN 1000MCG/ML VIAL IM SCH (08:52)
[2018-07-06] MEDS: LACTULOSE 20G/30ML UDC PO SCH ×2 (08:52→16:50)
[2018-07-06] MEDS: TIMOLOL MALEATE 0.25% OPHTH DROPS 5ML EACHEYE SCH ×2 (09:39→21:51)
[2018-07-06] MEDS: PILOCARPINE HCL 1% OPHTH DROPS 15ML BOTHEYE SCH ×2 (09:39→21:52)
[2018-07-06 09:44] LABS: BG BASE EXCESS 6.4 mmol/L (-2.0-2.0); BG DEOXYHEMOGLOBIN 0.9 % (0.0-5.0); BG FRACTION INSPIRED OXYGEN 50; BG HCO3 ACT 29.6 mmol/L (22.0-26.0); BG METHEMOGLOBIN 0.4 % (0.0-1.5); BG OXYGEN SATURATION 99.1 % (92.0-98.5); BG OXYHEMOGLOBIN 98.7 % (94.0-97.0); BG PCO2 37.3 mmHg (35.0-45.0); BG PH 7.518 (7.350-7.450); BG PO2 178.6 mmHg (75.0-100.0); BG SAMPLE SITE RIGHT RADIAL; BG TIDAL VOLUME(mL) 500 mL; BG TOTAL HEMOGLOBIN 9.4 g/dL (12.0-18.0); BG VENT MODE VENT - A/C; BG VENT RATE 12 set
[2018-07-06] MEDS: DEXT 5%/0.45% NACL KCL 20MEQ/L 1,000 ML IV SCH (11:25)
[2018-07-06 18:05] LABS: PLATELET ESTIMATE NORMAL
[2018-07-06] MEDS: POLYETHYLENE GLYCOL 3350 (17GM) 1 DOSE PACK PO SCH (21:23)
[2018-07-06] MEDS: NOREPINEPHRINE 16 MG in DEXT 5% WATER 234 ML IV PRN (23:19)
[2018-07-07] VITALS (93 sets, daily range): BP systolic 102–137; BP diastolic 38–92
[2018-07-07 05:08] LABS: HEMATOCRIT. 29.5 % (36.0-48.0); HEMOGLOBIN. 9.7 g/dL (12.0-16.0); MEAN CORPUSCULAR HEMOGLOBIN 29.1 pg (28.0-32.0); MEAN CORPUSCULAR VOLUME 88.8 fL (81.0-99.0); MEAN PLATELET VOLUME 8.8 fl (7.4-10.4); PLATELET 277 x1000/uL (130-400); RED BLOOD CELL COUNT 3.32 mill/uL (4.2-5.4); RED CELL DISTRIBUTION WIDTH 18.4 % (11.6-14.6)
[2018-07-07 05:09] LABS: CHLORIDE 85 mEq/L (98-107)
[2018-07-07] MEDS ORDERED: PHENYLEPHRINE 40 MG in DEXT 5% WATER 496 ML IV PRN (05:15)
[2018-07-07] MEDS: DEXT 5%/0.45% NACL KCL 20MEQ/L 1,000 ML IV SCH (06:24)
[2018-07-07] MEDS: BLOOD SUGAR DIAGNOSTIC STRIP TEST SCH ×4 (06:26→21:27)
[2018-07-07] MEDS: INSULIN LISPRO 100 UNITS/ML SUBCUT SCH ×4 (06:27→21:26)
[2018-07-07 08:51] LABS: PLATELET ESTIMATE NORMAL
[2018-07-07] MEDS: DOCUSATE SODIUM 100MG CAPSULE PO SCH ×2 (09:00→16:30)
[2018-07-07] MEDS: METOPROLOL TARTRATE 50MG TABLET PO SCH ×2 (09:00→21:00)
[2018-07-07] MEDS: MESALAMINE 400 MG CAPSULE.DR PO SCH ×3 (09:54→16:40)
[2018-07-07] MEDS: MAGNESIUM OXIDE 400MG TABLET NG SCH ×2 (09:54→16:40)
[2018-07-07] MEDS: LACTULOSE 20G/30ML UDC PO SCH ×2 (09:55→16:40)
[2018-07-07] MEDS: CYANOCOBALAMIN 1000MCG/ML VIAL IM SCH (09:55)
[2018-07-07] MEDS: TIMOLOL MALEATE 0.25% OPHTH DROPS 5ML EACHEYE SCH ×2 (09:55→21:24)
[2018-07-07] MEDS: PANTOPRAZOLE SODIUM 40 MG/VIAL IV SCH ×2 (09:55→21:23)
[2018-07-07] MEDS: PILOCARPINE HCL 1% OPHTH DROPS 15ML BOTHEYE SCH ×2 (09:55→21:24)
[2018-07-07] MEDS ORDERED: CEFEPIME 1,000 MG in DEXTROSE 5% WATER 50 ML IV SCH ×2 (14:15→16:00)
[2018-07-07] MEDS ORDERED: VANCOMYCIN 1 G PREMIX 200 ML IV SCH (16:00)
[2018-07-07] MEDS ORDERED: NOREPINEPHRINE 16 MG in SODIUM CHLORIDE 0.9% 234 ML IV PRN (21:00)
[2018-07-07] MEDS: POLYETHYLENE GLYCOL 3350 (17GM) 1 DOSE PACK PO SCH (21:24)
[2018-07-07] MEDS: INSULIN GLARGINE UD 100 UNITS/ML SYR SUBCUT SCH (21:27)
[2018-07-07] MEDS: PHENYLEPHRINE 40 MG in SODIUM CHLORIDE 0.9% 496 ML IV PRN (23:31)
[2018-07-08] VITALS (97 sets, daily range): BP systolic 90–133; BP diastolic 40–83
[2018-07-08] MEDS: DEXT 5%/0.45% NACL KCL 20MEQ/L 1,000 ML IV SCH (03:30)
[2018-07-08 06:15] LABS: HEMATOCRIT. 26.2 % (36.0-48.0); HEMOGLOBIN. 8.7 g/dL (12.0-16.0); MEAN CORPUSCULAR HEMOGLOBIN 29.5 pg (28.0-32.0); MEAN CORPUSCULAR VOLUME 88.4 fL (81.0-99.0); PLATELET 219 x1000/uL (130-400); RED BLOOD CELL COUNT 2.96 mill/uL (4.2-5.4); RED CELL DISTRIBUTION WIDTH 19.5 % (11.6-14.6)
[2018-07-08] MEDS: BLOOD SUGAR DIAGNOSTIC STRIP TEST SCH ×4 (06:30→21:00)
[2018-07-08 06:38] LABS: CHLORIDE 88 mEq/L (98-107)
[2018-07-08] MEDS: INSULIN LISPRO 100 UNITS/ML SUBCUT SCH ×4 (07:00→21:00)
[2018-07-08 07:56] LABS: PLATELET ESTIMATE NORMAL
[2018-07-08] MEDS: METOPROLOL TARTRATE 50MG TABLET PO SCH ×2 (09:00→21:00)
[2018-07-08] MEDS: IPRATROPIUM/ALBUTEROL 0.5-3(2.5)MG/3ML NEB HHN PRN (09:04)
[2018-07-08] MEDS: LACTULOSE 20G/30ML UDC PO SCH ×2 (09:17→16:24)
[2018-07-08] MEDS: MESALAMINE 400 MG CAPSULE.DR PO SCH ×3 (09:17→16:25)
[2018-07-08] MEDS: CYANOCOBALAMIN 1000MCG/ML VIAL IM SCH (09:17)
[2018-07-08] MEDS: DOCUSATE SODIUM 100MG CAPSULE PO SCH ×2 (09:17→16:24)
[2018-07-08] MEDS: PANTOPRAZOLE SODIUM 40 MG/VIAL IV SCH ×2 (09:17→21:59)
[2018-07-08] MEDS: MAGNESIUM OXIDE 400MG TABLET NG SCH ×2 (09:18→16:25)
[2018-07-08] MEDS: TIMOLOL MALEATE 0.25% OPHTH DROPS 5ML EACHEYE SCH ×2 (09:19→22:03)
[2018-07-08] MEDS: INSULIN GLARGINE UD 100 UNITS/ML SYR SUBCUT SCH ×2 (09:19→22:02)
[2018-07-08] MEDS: PILOCARPINE HCL 1% OPHTH DROPS 15ML BOTHEYE SCH ×2 (09:19→22:03)
[2018-07-08] MEDS ORDERED: VANCOMYCIN 750 MG PREMIX 150 ML IV SCH (12:00)
[2018-07-08] MEDS: PHENYLEPHRINE 40 MG in SODIUM CHLORIDE 0.9% 496 ML IV PRN (13:28)
[2018-07-08] MEDS ORDERED: DIGOXIN 500MCG/2ML AMP IV NR (16:15)
[2018-07-08] MEDS: CEFEPIME 1,000 MG in SODIUM CHLORIDE 0.9% 50 ML IV SCH (16:26)
[2018-07-08] MEDS ORDERED: PHENYLEPHRINE 40 MG in DEXT 5% WATER 246 ML IV SCH (18:30)
[2018-07-08] MEDS ORDERED: DIGOXIN 500MCG/2ML AMP IV SCH (20:00)
[2018-07-08] MEDS: POLYETHYLENE GLYCOL 3350 (17GM) 1 DOSE PACK PO SCH (21:58)
[2018-07-08 22:20] LABS: BG BASE EXCESS 4.1 mmol/L (-2.0-2.0); BG CARBOXYHEMOGLOBIN 0.5 % (0.5-1.5); BG DEOXYHEMOGLOBIN 1.6 % (0.0-5.0); BG FRACTION INSPIRED OXYGEN 40; BG HCO3 ACT 28.3 mmol/L (22.0-26.0); BG METHEMOGLOBIN 0.2 % (0.0-1.5); BG OXYGEN SATURATION 98.4 % (92.0-98.5); BG OXYHEMOGLOBIN 97.7 % (94.0-97.0); BG PH 7.457 (7.350-7.450); BG PO2 113.1 mmHg (75.0-100.0); BG SAMPLE SITE RIGHT RADIAL; BG TIDAL VOLUME(mL) 500 mL; BG TOTAL HEMOGLOBIN 10.1 g/dL (12.0-18.0); BG VENT MODE VENT - A/C; BG VENT RATE 12 set
[2018-07-09] VITALS (71 sets, daily range): BP systolic 97–153; BP diastolic 35–98
[2018-07-09 05:31] LABS: CHLORIDE 93 mEq/L (98-107)
[2018-07-09 05:41] LABS: CREATINE KINASE 27 IU/L (26-192)
[2018-07-09 05:44] LABS: HEMATOCRIT. 27.1 % (36.0-48.0); HEMOGLOBIN. 8.9 g/dL (12.0-16.0); MEAN CORPUSCULAR HEMOGLOBIN 29.1 pg (28.0-32.0); MEAN CORPUSCULAR VOLUME 88.8 fL (81.0-99.0); MEAN PLATELET VOLUME 9.2 fl (7.4-10.4); PLATELET 209 x1000/uL (130-400); RED BLOOD CELL COUNT 3.05 mill/uL (4.2-5.4); RED CELL DISTRIBUTION WIDTH 20.3 % (11.6-14.6)
[2018-07-09 05:45] LABS: CREATINE KINASE MB FRACTION < 1.0 ng/mL (0.5-3.6)
[2018-07-09] MEDS: BLOOD SUGAR DIAGNOSTIC STRIP TEST SCH ×4 (06:54→21:00)
[2018-07-09] MEDS: INSULIN LISPRO 100 UNITS/ML SUBCUT SCH ×4 (06:54→21:00)
[2018-07-09 07:48] LABS: PLATELET ESTIMATE NORMAL
[2018-07-09 08:16] LABS: BG BASE EXCESS 3.6 mmol/L (-2.0-2.0); BG CARBOXYHEMOGLOBIN 0.8 % (0.5-1.5); BG DEOXYHEMOGLOBIN 1.6 % (0.0-5.0); BG FRACTION INSPIRED OXYGEN 40; BG METHEMOGLOBIN 0.3 % (0.0-1.5); BG OXYGEN SATURATION 98.4 % (92.0-98.5); BG OXYHEMOGLOBIN 97.3 % (94.0-97.0); BG PH 7.493 (7.350-7.450); BG PO2 105.7 mmHg (75.0-100.0); BG SAMPLE SITE RIGHT RADIAL; BG TIDAL VOLUME(mL) 500 mL; BG TOTAL HEMOGLOBIN 9.5 g/dL (12.0-18.0); BG VENT MODE VENT - A/C; BG VENT RATE 12 set
[2018-07-09] MEDS: DOCUSATE SODIUM 100MG CAPSULE PO SCH ×2 (09:00→16:25)
[2018-07-09] MEDS: METOPROLOL TARTRATE 50MG TABLET PO SCH ×2 (09:00→21:00)
[2018-07-09] MEDS: PANTOPRAZOLE SODIUM 40 MG/VIAL IV SCH ×2 (09:49→21:52)
[2018-07-09] MEDS: MAGNESIUM OXIDE 400MG TABLET NG SCH ×2 (09:49→17:02)
[2018-07-09] MEDS: CYANOCOBALAMIN 1000MCG/ML VIAL IM SCH (09:49)
[2018-07-09] MEDS: LACTULOSE 20G/30ML UDC PO SCH (09:49)
[2018-07-09] MEDS: MESALAMINE 400 MG CAPSULE.DR PO SCH ×3 (09:49→16:42)
[2018-07-09] MEDS: INSULIN GLARGINE UD 100 UNITS/ML SYR SUBCUT SCH ×2 (09:50→22:00)
[2018-07-09] MEDS: PILOCARPINE HCL 1% OPHTH DROPS 15ML BOTHEYE SCH ×2 (09:50→21:53)
[2018-07-09] MEDS: TIMOLOL MALEATE 0.25% OPHTH DROPS 5ML EACHEYE SCH ×2 (09:50→21:53)
[2018-07-09 14:13] LABS: SODIUM URINE RANDOM 26 mEq/L
[2018-07-09] MEDS: CEFEPIME 1,000 MG in SODIUM CHLORIDE 0.9% 50 ML IV SCH (15:21)
[2018-07-09] MEDS: IPRATROPIUM/ALBUTEROL 0.5-3(2.5)MG/3ML NEB HHN PRN (15:59)
[2018-07-09] MEDS ORDERED: MAGNESIUM 2 G PREMIX 50 ML IV NR (16:00)
[2018-07-09] MEDS: IPRATROPIUM/ALBUTEROL 0.5-3(2.5)MG/3ML NEB HHN SCH (20:38)
[2018-07-09] MEDS: POLYETHYLENE GLYCOL 3350 (17GM) 1 DOSE PACK PO SCH (21:52)
[2018-07-09] MEDS: DEXTROSE 50% WATER 50ML SYRINGE IV PRN (22:06)
[2018-07-10] VITALS (44 sets, daily range): BP systolic 90–139; BP diastolic 41–83
[2018-07-10] MEDS: IPRATROPIUM/ALBUTEROL 0.5-3(2.5)MG/3ML NEB HHN SCH ×6 (00:49→20:26)
[2018-07-10 05:25] LABS: HEMATOCRIT. 29.7 % (36.0-48.0); HEMOGLOBIN. 9.7 g/dL (12.0-16.0); MEAN CORPUSCULAR VOLUME 88.9 fL (81.0-99.0); MEAN PLATELET VOLUME 9.2 fl (7.4-10.4); PLATELET 190 x1000/uL (130-400); RED BLOOD CELL COUNT 3.34 mill/uL (4.2-5.4)
[2018-07-10 05:31] LABS: CHLORIDE 92 mEq/L (98-107)
[2018-07-10 05:37] LABS: PHOSPHORUS 2.1 mg/dL (2.5-4.9)
[2018-07-10] MEDS: BLOOD SUGAR DIAGNOSTIC STRIP TEST SCH ×4 (06:23→20:38)
[2018-07-10] MEDS: INSULIN LISPRO 100 UNITS/ML SUBCUT SCH ×4 (06:24→20:38)
[2018-07-10 07:16] LABS: FOLICLE STIMULATING HORMONE 2.1 mIU/mL (.); LUTEINIZING HORMONE 1.4 mIU/mL (.)
[2018-07-10 08:54] LABS: BG BASE EXCESS 4.7 mmol/L (-2.0-2.0); BG CARBOXYHEMOGLOBIN 0.1 % (0.5-1.5); BG DEOXYHEMOGLOBIN 1.7 % (0.0-5.0); BG FRACTION INSPIRED OXYGEN 40; BG HCO3 ACT 28.4 mmol/L (22.0-26.0); BG METHEMOGLOBIN 0.3 % (0.0-1.5); BG OXYGEN SATURATION 98.3 % (92.0-98.5); BG OXYHEMOGLOBIN 97.9 % (94.0-97.0); BG PCO2 38.5 mmHg (35.0-45.0); BG PH 7.486 (7.350-7.450); BG PO2 107.1 mmHg (75.0-100.0); BG SAMPLE SITE RIGHT RADIAL; BG TIDAL VOLUME(mL) 500 mL; BG TOTAL HEMOGLOBIN 10.3 g/dL (12.0-18.0); BG VENT MODE VENT - A/C; BG VENT RATE 12 set
[2018-07-10] MEDS: DOCUSATE SODIUM 100MG CAPSULE PO SCH ×2 (09:00→17:00)
[2018-07-10] MEDS: LACTULOSE 20G/30ML UDC NG SCH (09:58)
[2018-07-10] MEDS: MAGNESIUM OXIDE 400MG TABLET NG SCH ×2 (09:58→17:22)
[2018-07-10] MEDS: PANTOPRAZOLE SODIUM 40 MG/VIAL IV SCH ×2 (09:58→20:39)
[2018-07-10] MEDS: MESALAMINE 400 MG CAPSULE.DR PO SCH ×3 (09:59→17:22)
[2018-07-10] MEDS: CYANOCOBALAMIN 1000MCG/ML VIAL IM SCH (10:00)
[2018-07-10] MEDS: INSULIN GLARGINE UD 100 UNITS/ML SYR SUBCUT SCH ×2 (10:00→22:00)
[2018-07-10] MEDS: PILOCARPINE HCL 1% OPHTH DROPS 15ML BOTHEYE SCH ×2 (10:01→20:41)
[2018-07-10] MEDS: TIMOLOL MALEATE 0.25% OPHTH DROPS 5ML EACHEYE SCH ×2 (10:01→20:41)
[2018-07-10] MEDS: METOPROLOL TARTRATE 50MG TABLET PO SCH ×2 (10:01→20:39)
[2018-07-10 10:43] LABS: PLATELET ESTIMATE NORMAL
[2018-07-10 11:45] LABS: BG BASE EXCESS 7.1 mmol/L (-2.0-2.0); BG CARBOXYHEMOGLOBIN 0.3 % (0.5-1.5); BG DEOXYHEMOGLOBIN 2.6 % (0.0-5.0); BG FRACTION INSPIRED OXYGEN 40; BG HCO3 ACT 31.1 mmol/L (22.0-26.0); BG METHEMOGLOBIN 0.1 % (0.0-1.5); BG OXYGEN SATURATION 97.4 % (92.0-98.5); BG PCO2 42.2 mmHg (35.0-45.0); BG PH 7.486 (7.350-7.450); BG PO2 93.5 mmHg (75.0-100.0); BG SAMPLE SITE RIGHT BRACHIAL; BG TIDAL VOLUME(mL) 500 mL; BG TOTAL HEMOGLOBIN 10.1 g/dL (12.0-18.0); BG VENT MODE VENT - SIMV; BG VENT RATE 12 set
[2018-07-10 13:06] LABS: ANTI-PARIETAL CELL AB 7.3 Units (0.0-20.0)
[2018-07-10] MEDS: CEFEPIME 1,000 MG in SODIUM CHLORIDE 0.9% 50 ML IV SCH (16:26)
[2018-07-10] MEDS: DEXTROSE 50% WATER 50ML SYRINGE IV PRN (20:29)
[2018-07-10] MEDS: ENOXAPARIN 30MG/0.3ML SYR SUBCUT SCH (20:39)
[2018-07-10] MEDS: POLYETHYLENE GLYCOL 3350 (17GM) 1 DOSE PACK PO SCH (20:39)
[2018-07-11] VITALS (45 sets, daily range): BP systolic 100–143; BP diastolic 40–91
[2018-07-11] MEDS: IPRATROPIUM/ALBUTEROL 0.5-3(2.5)MG/3ML NEB HHN SCH ×7 (00:11→23:43)
[2018-07-11] MEDS: DEXTROSE 50% WATER 50ML SYRINGE IV PRN (02:39)
[2018-07-11 05:34] LABS: HEMATOCRIT. 28.3 % (36.0-48.0); HEMOGLOBIN. 9.4 g/dL (12.0-16.0); MEAN CORPUSCULAR HEMOGLOBIN 29.5 pg (28.0-32.0); MEAN CORPUSCULAR VOLUME 88.9 fL (81.0-99.0); MEAN PLATELET VOLUME 9.4 fl (7.4-10.4); PLATELET 188 x1000/uL (130-400); RED BLOOD CELL COUNT 3.18 mill/uL (4.2-5.4); RED CELL DISTRIBUTION WIDTH 20.6 % (11.6-14.6)
[2018-07-11 05:37] LABS: CHLORIDE 92 mEq/L (98-107)
[2018-07-11] MEDS: BLOOD SUGAR DIAGNOSTIC STRIP TEST SCH ×4 (06:59→21:40)
[2018-07-11] MEDS: INSULIN LISPRO 100 UNITS/ML SUBCUT SCH ×4 (06:59→21:40)
[2018-07-11] MEDS: MESALAMINE 400 MG CAPSULE.DR PO SCH ×2 (08:54→13:00)
[2018-07-11] MEDS: LACTULOSE 20G/30ML UDC NG SCH (08:54)
[2018-07-11] MEDS: DOCUSATE SODIUM 100MG CAPSULE PO SCH (08:54)
[2018-07-11] MEDS: PANTOPRAZOLE SODIUM 40 MG/VIAL IV SCH ×2 (08:54→21:38)
[2018-07-11] MEDS: MAGNESIUM OXIDE 400MG TABLET NG SCH ×2 (08:54→16:31)
[2018-07-11] MEDS: PILOCARPINE HCL 1% OPHTH DROPS 15ML BOTHEYE SCH ×2 (08:54→21:39)
[2018-07-11] MEDS: METOPROLOL TARTRATE 50MG TABLET PO SCH ×2 (08:55→21:38)
[2018-07-11] MEDS: TIMOLOL MALEATE 0.25% OPHTH DROPS 5ML EACHEYE SCH ×2 (08:56→21:39)
[2018-07-11] MEDS: INSULIN GLARGINE UD 100 UNITS/ML SYR SUBCUT SCH ×2 (09:14→23:02)
[2018-07-11 10:08] LABS: PLATELET ESTIMATE NORMAL
[2018-07-11 12:30] LABS: BG BASE EXCESS 6.9 mmol/L (-2.0-2.0); BG CARBOXYHEMOGLOBIN 0.3 % (0.5-1.5); BG DEOXYHEMOGLOBIN 0.8 % (0.0-5.0); BG FRACTION INSPIRED OXYGEN 40; BG HCO3 ACT 31.4 mmol/L (22.0-26.0); BG METHEMOGLOBIN 0.2 % (0.0-1.5); BG OXYGEN SATURATION 99.2 % (92.0-98.5); BG OXYHEMOGLOBIN 98.7 % (94.0-97.0); BG PH 7.462 (7.350-7.450); BG PO2 207.8 mmHg (75.0-100.0); BG PRESSURE SUPPORT 10; BG SAMPLE SITE RIGHT BRACHIAL; BG TIDAL VOLUME(mL) 500 mL; BG TOTAL HEMOGLOBIN 9.3 g/dL (12.0-18.0); BG VENT MODE VENT - SIMV; BG VENT RATE 6 set
[2018-07-11] MEDS: CEFEPIME 1,000 MG in SODIUM CHLORIDE 0.9% 50 ML IV SCH (16:14)
[2018-07-11] MEDS: DOCUSATE SODIUM SUGAR FREE 100MG/10ML UDC NG SCH (16:31)
[2018-07-11] MEDS: MESALAMINE 250MG CAPSULE EXTENDED RELEASE NG SCH ×2 (16:31→21:39)
[2018-07-11] MEDS: POLYETHYLENE GLYCOL 3350 (17GM) 1 DOSE PACK PO SCH (21:38)
[2018-07-11] MEDS: ENOXAPARIN 30MG/0.3ML SYR SUBCUT SCH (21:39)
[2018-07-12] VITALS (45 sets, daily range): BP systolic 85–138; BP diastolic 32–69
[2018-07-12] MEDS: IPRATROPIUM/ALBUTEROL 0.5-3(2.5)MG/3ML NEB HHN SCH ×5 (03:59→20:23)
[2018-07-12 04:42] LABS: HEMATOCRIT. 26.6 % (36.0-48.0); HEMOGLOBIN. 8.8 g/dL (12.0-16.0); MEAN CORPUSCULAR HEMOGLOBIN 29.2 pg (28.0-32.0); MEAN CORPUSCULAR VOLUME 88.5 fL (81.0-99.0); MEAN PLATELET VOLUME 8.8 fl (7.4-10.4); PLATELET 191 x1000/uL (130-400); RED BLOOD CELL COUNT 3.01 mill/uL (4.2-5.4); RED CELL DISTRIBUTION WIDTH 20.3 % (11.6-14.6)
[2018-07-12 05:06] LABS: CHLORIDE 91 mEq/L (98-107)
[2018-07-12 05:15] LABS: PHOSPHORUS 2.5 mg/dL (2.5-4.9)
[2018-07-12] MEDS: INSULIN LISPRO 100 UNITS/ML SUBCUT SCH ×4 (05:39→23:23)
[2018-07-12] MEDS: BLOOD SUGAR DIAGNOSTIC STRIP TEST SCH ×4 (05:39→21:00)
[2018-07-12 07:45] LABS: BG BASE EXCESS 10.8 mmol/L (-2.0-2.0); BG CARBOXYHEMOGLOBIN 0.9 % (0.5-1.5); BG DEOXYHEMOGLOBIN 0.5 % (0.0-5.0); BG FRACTION INSPIRED OXYGEN 40; BG HCO3 ACT 32.8 mmol/L (22.0-26.0); BG METHEMOGLOBIN 0.2 % (0.0-1.5); BG OXYGEN SATURATION 99.5 % (92.0-98.5); BG OXYHEMOGLOBIN 98.4 % (94.0-97.0); BG PCO2 33.1 mmHg (35.0-45.0); BG PH 7.614 (7.350-7.450); BG SAMPLE SITE RIGHT BRACHIAL; BG TIDAL VOLUME(mL) 500 mL; BG TOTAL HEMOGLOBIN 8.8 g/dL (12.0-18.0); BG VENT MODE VENT - A/C; BG VENT RATE 12 set
[2018-07-12] MEDS: PANTOPRAZOLE SODIUM 40 MG/VIAL IV SCH ×2 (08:30→22:50)
[2018-07-12] MEDS: LACTULOSE 20G/30ML UDC NG SCH (08:30)
[2018-07-12] MEDS: DOCUSATE SODIUM SUGAR FREE 100MG/10ML UDC NG SCH ×2 (08:30→17:37)
[2018-07-12] MEDS: MAGNESIUM OXIDE 400MG TABLET NG SCH ×2 (08:30→17:38)
[2018-07-12] MEDS: ACETAMINOPHEN 325MG TABLET PO PRN (08:31)
[2018-07-12] MEDS: MESALAMINE 250MG CAPSULE EXTENDED RELEASE NG SCH ×4 (08:31→22:52)
[2018-07-12] MEDS: METOPROLOL TARTRATE 50MG TABLET PO SCH ×2 (08:31→22:54)
[2018-07-12] MEDS: PILOCARPINE HCL 1% OPHTH DROPS 15ML BOTHEYE SCH ×2 (08:32→22:43)
[2018-07-12] MEDS: TIMOLOL MALEATE 0.25% OPHTH DROPS 5ML EACHEYE SCH ×2 (08:32→22:43)
[2018-07-12] MEDS ORDERED: MAGNESIUM 1 G PREMIX 100 ML IV SCH (08:45)
[2018-07-12] MEDS: ASPIRIN 81MG EC TABLET PO SCH (10:05)
[2018-07-12] MEDS: INSULIN GLARGINE UD 100 UNITS/ML SYR SUBCUT SCH ×2 (10:06→23:22)
[2018-07-12 12:03] LABS: PLATELET ESTIMATE NORMAL
[2018-07-12 16:59] LABS: BG BASE EXCESS 7.7 mmol/L (-2.0-2.0); BG CARBOXYHEMOGLOBIN 0.5 % (0.5-1.5); BG DEOXYHEMOGLOBIN 1.2 % (0.0-5.0); BG FRACTION INSPIRED OXYGEN 40; BG HCO3 ACT 31.9 mmol/L (22.0-26.0); BG METHEMOGLOBIN 0.2 % (0.0-1.5); BG OXYGEN SATURATION 98.8 % (92.0-98.5); BG OXYHEMOGLOBIN 98.1 % (94.0-97.0); BG PCO2 43.2 mmHg (35.0-45.0); BG PH 7.486 (7.350-7.450); BG PRESSURE SUPPORT 10; BG SAMPLE SITE RIGHT BRACHIAL; BG TIDAL VOLUME(mL) 500 mL; BG TOTAL HEMOGLOBIN 8.5 g/dL (12.0-18.0); BG VENT MODE VENT - SIMV; BG VENT RATE 12 set
[2018-07-12] MEDS ORDERED: METHYLPREDNISOLONE SOD SUCC 125 MG/2 ML VIAL IV NR (17:30)
[2018-07-12] MEDS: CEFEPIME 1,000 MG in SODIUM CHLORIDE 0.9% 50 ML IV SCH (17:37)
[2018-07-12] MEDS: METHYLPREDNISOLONE SOD SUCC 40 MG/ML VIAL IV SCH (22:51)
[2018-07-12] MEDS: POLYETHYLENE GLYCOL 3350 (17GM) 1 DOSE PACK PO SCH (22:53)
[2018-07-12] MEDS: ENOXAPARIN 30MG/0.3ML SYR SUBCUT SCH (23:24)
[2018-07-13] VITALS (43 sets, daily range): BP systolic 109–139; BP diastolic 37–81
[2018-07-13] MEDS: IPRATROPIUM/ALBUTEROL 0.5-3(2.5)MG/3ML NEB HHN SCH ×6 (00:34→21:01)
[2018-07-13] MEDS: METHYLPREDNISOLONE SOD SUCC 40 MG/ML VIAL IV SCH ×3 (06:36→21:19)
[2018-07-13] MEDS: INSULIN LISPRO 100 UNITS/ML SUBCUT SCH ×4 (06:41→21:20)
[2018-07-13 06:46] LABS: HEMOGLOBIN. 8.6 g/dL (12.0-16.0); MEAN CORPUSCULAR HEMOGLOBIN 29.4 pg (28.0-32.0); MEAN CORPUSCULAR VOLUME 88.5 fL (81.0-99.0); MEAN PLATELET VOLUME 9.3 fl (7.4-10.4); PLATELET 210 x1000/uL (130-400); RED BLOOD CELL COUNT 2.94 mill/uL (4.2-5.4); RED CELL DISTRIBUTION WIDTH 19.9 % (11.6-14.6)
[2018-07-13] MEDS: BLOOD SUGAR DIAGNOSTIC STRIP TEST SCH ×3 (06:48→21:15)
[2018-07-13 06:52] LABS: CHLORIDE 90 mEq/L (98-107)
[2018-07-13 08:27] LABS: BG BASE EXCESS 8.5 mmol/L (-2.0-2.0); BG CARBOXYHEMOGLOBIN 0.6 % (0.5-1.5); BG FRACTION INSPIRED OXYGEN 40; BG HCO3 ACT 32.2 mmol/L (22.0-26.0); BG METHEMOGLOBIN 0.2 % (0.0-1.5); BG OXYHEMOGLOBIN 98.2 % (94.0-97.0); BG PH 7.513 (7.350-7.450); BG PO2 145.6 mmHg (75.0-100.0); BG PRESSURE SUPPORT 10; BG SAMPLE SITE RIGHT RADIAL; BG TIDAL VOLUME(mL) 500 mL; BG VENT MODE VENT - SIMV; BG VENT RATE 12 set
[2018-07-13] MEDS: METOPROLOL TARTRATE 50MG TABLET PO SCH ×2 (09:00→20:49)
[2018-07-13] MEDS: PILOCARPINE HCL 1% OPHTH DROPS 15ML BOTHEYE SCH ×2 (09:41→20:49)
[2018-07-13] MEDS: PANTOPRAZOLE SODIUM 40 MG/VIAL IV SCH ×2 (09:41→20:50)
[2018-07-13] MEDS: ASPIRIN 81MG EC TABLET PO SCH (09:42)
[2018-07-13] MEDS: DOCUSATE SODIUM SUGAR FREE 100MG/10ML UDC NG SCH ×2 (09:42→17:23)
[2018-07-13] MEDS: TIMOLOL MALEATE 0.25% OPHTH DROPS 5ML EACHEYE SCH ×2 (09:42→20:49)
[2018-07-13] MEDS: MAGNESIUM OXIDE 400MG TABLET NG SCH ×2 (09:42→17:23)
[2018-07-13] MEDS: LACTULOSE 20G/30ML UDC NG SCH (09:42)
[2018-07-13] MEDS: MESALAMINE 250MG CAPSULE EXTENDED RELEASE NG SCH ×4 (09:42→20:48)
[2018-07-13] MEDS: INSULIN GLARGINE UD 100 UNITS/ML SYR SUBCUT SCH ×2 (10:35→22:53)
[2018-07-13 13:45] LABS: PLATELET ESTIMATE NORMAL
[2018-07-13] MEDS: CEFEPIME 1,000 MG in SODIUM CHLORIDE 0.9% 50 ML IV SCH (17:23)
[2018-07-13] MEDS: POLYETHYLENE GLYCOL 3350 (17GM) 1 DOSE PACK PO SCH (20:48)
[2018-07-13] MEDS: ENOXAPARIN 30MG/0.3ML SYR SUBCUT SCH (20:50)
[2018-07-13 21:12] LABS: BG BASE EXCESS 8.1 mmol/L (-2.0-2.0); BG CARBOXYHEMOGLOBIN 0.4 % (0.5-1.5); BG DEOXYHEMOGLOBIN 1.2 % (0.0-5.0); BG FRACTION INSPIRED OXYGEN 40; BG HCO3 ACT 32.5 mmol/L (22.0-26.0); BG METHEMOGLOBIN 0.4 % (0.0-1.5); BG OXYGEN SATURATION 98.8 % (92.0-98.5); BG PH 7.477 (7.350-7.450); BG PO2 139.5 mmHg (75.0-100.0); BG PRESSURE SUPPORT 10; BG SAMPLE SITE RIGHT RADIAL; BG TIDAL VOLUME(mL) 500 mL; BG VENT MODE VENT - SIMV; BG VENT RATE 8 set
[2018-07-14] VITALS (46 sets, daily range): BP systolic 108–159; BP diastolic 48–91
[2018-07-14] MEDS: IPRATROPIUM/ALBUTEROL 0.5-3(2.5)MG/3ML NEB HHN SCH ×4 (00:12→20:31)
[2018-07-14 05:39] LABS: HEMATOCRIT. 27.7 % (36.0-48.0); HEMOGLOBIN. 9.1 g/dL (12.0-16.0); MEAN CORPUSCULAR HEMOGLOBIN 29.2 pg (28.0-32.0); MEAN CORPUSCULAR VOLUME 88.7 fL (81.0-99.0); MEAN PLATELET VOLUME 9.3 fl (7.4-10.4); PLATELET 285 x1000/uL (130-400); RED BLOOD CELL COUNT 3.12 mill/uL (4.2-5.4); RED CELL DISTRIBUTION WIDTH 20.7 % (11.6-14.6)
[2018-07-14 05:47] LABS: CHLORIDE 92 mEq/L (98-107)
[2018-07-14] MEDS: BLOOD SUGAR DIAGNOSTIC STRIP TEST SCH ×4 (06:34→21:50)
[2018-07-14] MEDS: METHYLPREDNISOLONE SOD SUCC 40 MG/ML VIAL IV SCH ×3 (06:39→22:18)
[2018-07-14] MEDS: INSULIN LISPRO 100 UNITS/ML SUBCUT SCH ×4 (06:41→21:55)
[2018-07-14 08:02] LABS: BG BASE EXCESS 9.2 mmol/L (-2.0-2.0); BG CARBOXYHEMOGLOBIN 0.5 % (0.5-1.5); BG DEOXYHEMOGLOBIN 1.9 % (0.0-5.0); BG FRACTION INSPIRED OXYGEN 40; BG HCO3 ACT 33.9 mmol/L (22.0-26.0); BG METHEMOGLOBIN 0.3 % (0.0-1.5); BG OXYGEN SATURATION 98.1 % (92.0-98.5); BG OXYHEMOGLOBIN 97.3 % (94.0-97.0); BG PCO2 47.5 mmHg (35.0-45.0); BG PH 7.471 (7.350-7.450); BG PO2 105.4 mmHg (75.0-100.0); BG PRESSURE SUPPORT 10; BG SAMPLE SITE RIGHT BRACHIAL; BG TIDAL VOLUME(mL) 500 mL; BG TOTAL HEMOGLOBIN 9.5 g/dL (12.0-18.0); BG VENT MODE VENT - SIMV; BG VENT RATE 8 set
[2018-07-14 08:08] LABS: ESTRADIOL 33.7 pg/mL (.); PROLACTIN 10.3 ng/mL (4.8-23.3)
[2018-07-14] MEDS: PANTOPRAZOLE SODIUM 40 MG/VIAL IV SCH ×2 (08:37→21:28)
[2018-07-14] MEDS: ASPIRIN 81MG EC TABLET PO SCH (08:38)
[2018-07-14] MEDS: METOPROLOL TARTRATE 50MG TABLET PO SCH ×2 (08:38→21:29)
[2018-07-14] MEDS: MAGNESIUM OXIDE 400MG TABLET NG SCH ×2 (08:38→16:04)
[2018-07-14] MEDS: MESALAMINE 250MG CAPSULE EXTENDED RELEASE NG SCH ×4 (08:38→21:28)
[2018-07-14] MEDS: DOCUSATE SODIUM SUGAR FREE 100MG/10ML UDC NG SCH ×2 (08:39→16:04)
[2018-07-14] MEDS: PILOCARPINE HCL 1% OPHTH DROPS 15ML BOTHEYE SCH ×2 (08:39→21:03)
[2018-07-14] MEDS: LACTULOSE 20G/30ML UDC NG SCH (08:39)
[2018-07-14] MEDS: TIMOLOL MALEATE 0.25% OPHTH DROPS 5ML EACHEYE SCH ×2 (08:39→21:27)
[2018-07-14] MEDS: INSULIN GLARGINE UD 100 UNITS/ML SYR SUBCUT SCH ×2 (09:52→22:18)
[2018-07-14 10:10] LABS: PLATELET ESTIMATE NORMAL
[2018-07-14 14:17] LABS: BG CARBOXYHEMOGLOBIN 0.6 % (0.5-1.5); BG DEOXYHEMOGLOBIN 2.6 % (0.0-5.0); BG FRACTION INSPIRED OXYGEN 40; BG METHEMOGLOBIN 0.1 % (0.0-1.5); BG OXYGEN SATURATION 97.4 % (92.0-98.5); BG OXYHEMOGLOBIN 96.7 % (94.0-97.0); BG PCO2 55.8 mmHg (35.0-45.0); BG PH 7.415 (7.350-7.450); BG PO2 104.2 mmHg (75.0-100.0); BG PRESSURE SUPPORT 10; BG SAMPLE SITE RIGHT BRACHIAL; BG TOTAL HEMOGLOBIN 9.9 g/dL (12.0-18.0); BG VENT MODE VENT - CPAP
[2018-07-14] MEDS: CEFEPIME 1,000 MG in SODIUM CHLORIDE 0.9% 50 ML IV SCH (15:06)
[2018-07-14] MEDS: POLYETHYLENE GLYCOL 3350 (17GM) 1 DOSE PACK PO SCH (21:28)
[2018-07-14] MEDS: ENOXAPARIN 30MG/0.3ML SYR SUBCUT SCH (21:43)
[2018-07-14 23:04] LABS: BG BASE EXCESS 11.3 mmol/L (-2.0-2.0); BG CARBOXYHEMOGLOBIN 0.7 % (0.5-1.5); BG DEOXYHEMOGLOBIN 1.9 % (0.0-5.0); BG FRACTION INSPIRED OXYGEN 40; BG HCO3 ACT 36.5 mmol/L (22.0-26.0); BG METHEMOGLOBIN 0.3 % (0.0-1.5); BG OXYGEN SATURATION 98.1 % (92.0-98.5); BG OXYHEMOGLOBIN 97.1 % (94.0-97.0); BG PCO2 52.6 mmHg (35.0-45.0); BG PH 7.459 (7.350-7.450); BG PIP 17 cmH2O; BG PO2 109.9 mmHg (75.0-100.0); BG PRESSURE SUPPORT 10; BG SAMPLE SITE RIGHT RADIAL; BG TIDAL VOLUME(mL) 500 mL; BG TOTAL HEMOGLOBIN 9.2 g/dL (12.0-18.0); BG VENT MODE VENT - SIMV; BG VENT RATE 8 set
[2018-07-15] VITALS (41 sets, daily range): BP systolic 100–148; BP diastolic 40–80
[2018-07-15] MEDS: IPRATROPIUM/ALBUTEROL 0.5-3(2.5)MG/3ML NEB HHN SCH ×6 (00:25→20:20)
[2018-07-15 05:35] LABS: HEMATOCRIT. 26.1 % (36.0-48.0); HEMOGLOBIN. 8.3 g/dL (12.0-16.0); MEAN CORPUSCULAR HEMOGLOBIN 28.7 pg (28.0-32.0); MEAN CORPUSCULAR VOLUME 89.9 fL (81.0-99.0); PLATELET 298 x1000/uL (130-400); RED CELL DISTRIBUTION WIDTH 20.5 % (11.6-14.6)
[2018-07-15 05:36] LABS: CHLORIDE 93 mEq/L (98-107)
[2018-07-15 05:42] LABS: PHOSPHORUS 2.2 mg/dL (2.5-4.9)
[2018-07-15] MEDS: BLOOD SUGAR DIAGNOSTIC STRIP TEST SCH ×4 (06:36→21:42)
[2018-07-15] MEDS: METHYLPREDNISOLONE SOD SUCC 40 MG/ML VIAL IV SCH ×3 (06:44→21:39)
[2018-07-15] MEDS: INSULIN LISPRO 100 UNITS/ML SUBCUT SCH ×4 (06:45→21:58)
[2018-07-15 08:12] LABS: BG BASE EXCESS 9.9 mmol/L (-2.0-2.0); BG CARBOXYHEMOGLOBIN 0.8 % (0.5-1.5); BG FRACTION INSPIRED OXYGEN 40; BG HCO3 ACT 34.3 mmol/L (22.0-26.0); BG METHEMOGLOBIN 0.1 % (0.0-1.5); BG OXYHEMOGLOBIN 97.1 % (94.0-97.0); BG PO2 103.9 mmHg (75.0-100.0); BG PRESSURE SUPPORT 10; BG SAMPLE SITE RIGHT BRACHIAL; BG TIDAL VOLUME(mL) 500 mL; BG TOTAL HEMOGLOBIN 8.3 g/dL (12.0-18.0); BG VENT MODE VENT - SIMV; BG VENT RATE 8 set
[2018-07-15] MEDS: TIMOLOL MALEATE 0.25% OPHTH DROPS 5ML EACHEYE SCH ×2 (08:40→21:59)
[2018-07-15] MEDS: MESALAMINE 250MG CAPSULE EXTENDED RELEASE NG SCH ×4 (08:40→21:40)
[2018-07-15] MEDS: PILOCARPINE HCL 1% OPHTH DROPS 15ML BOTHEYE SCH ×2 (08:40→21:59)
[2018-07-15] MEDS: LACTULOSE 20G/30ML UDC NG SCH (08:40)
[2018-07-15] MEDS: PANTOPRAZOLE SODIUM 40 MG/VIAL IV SCH ×2 (08:40→21:39)
[2018-07-15] MEDS: DOCUSATE SODIUM SUGAR FREE 100MG/10ML UDC NG SCH ×2 (08:40→16:32)
[2018-07-15] MEDS: ASPIRIN 81MG EC TABLET PO SCH (08:41)
[2018-07-15] MEDS: METOPROLOL TARTRATE 50MG TABLET PO SCH ×2 (08:41→21:40)
[2018-07-15] MEDS: MAGNESIUM OXIDE 400MG TABLET NG SCH ×2 (08:41→16:33)
[2018-07-15] MEDS: INSULIN GLARGINE UD 100 UNITS/ML SYR SUBCUT SCH ×2 (09:10→21:58)
[2018-07-15 13:47] LABS: PLATELET ESTIMATE NORMAL
[2018-07-15] MEDS: CEFEPIME 1,000 MG in SODIUM CHLORIDE 0.9% 50 ML IV SCH (16:24)
[2018-07-15] MEDS: POTASSIUM-SODIUM PHOSPHATE POWDER PACKET PO SCH (16:32)
[2018-07-15] MEDS ORDERED: SODIUM PHOS,M-BASIC-D-BASIC 20 MM in DEXT 5% WATER 243.3333 ML IV NR (18:00)
[2018-07-15] MEDS ORDERED: POTASSIUM PHOS,M-BASIC-D-BASIC 20 MMOL in DEXTROSE 5% WATER 250 ML IV NR (18:00)
[2018-07-15 21:02] LABS: BG BASE EXCESS 10.8 mmol/L (-2.0-2.0); BG CARBOXYHEMOGLOBIN 0.7 % (0.5-1.5); BG DEOXYHEMOGLOBIN 2.3 % (0.0-5.0); BG FRACTION INSPIRED OXYGEN 40; BG HCO3 ACT 35.5 mmol/L (22.0-26.0); BG METHEMOGLOBIN 0.3 % (0.0-1.5); BG OXYGEN SATURATION 97.7 % (92.0-98.5); BG OXYHEMOGLOBIN 96.7 % (94.0-97.0); BG PCO2 48.6 mmHg (35.0-45.0); BG PH 7.482 (7.350-7.450); BG PO2 91.5 mmHg (75.0-100.0); BG PRESSURE SUPPORT 10; BG SAMPLE SITE RIGHT RADIAL; BG TIDAL VOLUME(mL) 500 mL; BG TOTAL HEMOGLOBIN 10.2 g/dL (12.0-18.0); BG VENT MODE VENT - SIMV; BG VENT RATE 4 set
[2018-07-15] MEDS: POLYETHYLENE GLYCOL 3350 (17GM) 1 DOSE PACK PO SCH (21:39)
[2018-07-15] MEDS: LORAZEPAM 2MG/ML CPJ IV PRN (21:40)
[2018-07-15] MEDS: ENOXAPARIN 30MG/0.3ML SYR SUBCUT SCH (21:42)
[2018-07-16] VITALS (44 sets, daily range): BP systolic 11–167; BP diastolic 39–134
[2018-07-16] MEDS: IPRATROPIUM/ALBUTEROL 0.5-3(2.5)MG/3ML NEB HHN SCH ×5 (00:21→16:18)
[2018-07-16] MEDS: METHYLPREDNISOLONE SOD SUCC 40 MG/ML VIAL IV SCH ×3 (05:23→22:16)
[2018-07-16 05:42] LABS: CHLORIDE 95 mEq/L (98-107)
[2018-07-16 05:45] LABS: HEMATOCRIT. 25.1 % (36.0-48.0); HEMOGLOBIN. 8.1 g/dL (12.0-16.0); MEAN CORPUSCULAR HEMOGLOBIN 29.1 pg (28.0-32.0); MEAN CORPUSCULAR VOLUME 89.9 fL (81.0-99.0); MEAN PLATELET VOLUME 9.1 fl (7.4-10.4); PLATELET 265 x1000/uL (130-400); RED CELL DISTRIBUTION WIDTH 20.2 % (11.6-14.6)
[2018-07-16] MEDS: BLOOD SUGAR DIAGNOSTIC STRIP TEST SCH ×4 (06:05→21:00)
[2018-07-16] MEDS: INSULIN LISPRO 100 UNITS/ML SUBCUT SCH ×4 (06:06→21:00)
[2018-07-16 07:34] LABS: BG BASE EXCESS 8.1 mmol/L (-2.0-2.0); BG CARBOXYHEMOGLOBIN 0.9 % (0.5-1.5); BG DEOXYHEMOGLOBIN 2.8 % (0.0-5.0); BG FRACTION INSPIRED OXYGEN 40; BG HCO3 ACT 32.6 mmol/L (22.0-26.0); BG METHEMOGLOBIN 0.2 % (0.0-1.5); BG OXYGEN SATURATION 97.2 % (92.0-98.5); BG OXYHEMOGLOBIN 96.1 % (94.0-97.0); BG PCO2 45.7 mmHg (35.0-45.0); BG PH 7.471 (7.350-7.450); BG PO2 94.4 mmHg (75.0-100.0); BG PRESSURE SUPPORT 10; BG SAMPLE SITE RIGHT RADIAL; BG TIDAL VOLUME(mL) 500 mL; BG TOTAL HEMOGLOBIN 8.4 g/dL (12.0-18.0); BG VENT MODE VENT - SIMV; BG VENT RATE 4 set
[2018-07-16 08:39] LABS: PLATELET ESTIMATE NORMAL
[2018-07-16] MEDS: METOPROLOL TARTRATE 50MG TABLET PO SCH ×2 (09:00→21:00)
[2018-07-16] MEDS: PILOCARPINE HCL 1% OPHTH DROPS 15ML BOTHEYE SCH ×2 (09:32→21:00)
[2018-07-16] MEDS: POTASSIUM-SODIUM PHOSPHATE POWDER PACKET PO SCH ×2 (09:32→16:15)
[2018-07-16] MEDS: PANTOPRAZOLE SODIUM 40 MG/VIAL IV SCH ×2 (09:32→21:00)
[2018-07-16] MEDS: MESALAMINE 250MG CAPSULE EXTENDED RELEASE NG SCH ×4 (09:32→21:00)
[2018-07-16] MEDS: DOCUSATE SODIUM SUGAR FREE 100MG/10ML UDC NG SCH ×2 (09:32→16:15)
[2018-07-16] MEDS: ASPIRIN 81MG EC TABLET PO SCH (09:32)
[2018-07-16] MEDS: MAGNESIUM OXIDE 400MG TABLET NG SCH ×2 (09:32→16:16)
[2018-07-16] MEDS: LACTULOSE 20G/30ML UDC NG SCH (09:32)
[2018-07-16] MEDS: TIMOLOL MALEATE 0.25% OPHTH DROPS 5ML EACHEYE SCH ×2 (09:33→21:00)
[2018-07-16] MEDS: INSULIN GLARGINE UD 100 UNITS/ML SYR SUBCUT SCH ×2 (09:47→23:00)
[2018-07-16] MEDS ORDERED: CEFEPIME 1,000 MG in SODIUM CHLORIDE 0.9% 50 ML IV SCH (16:00)
[2018-07-16] MEDS: POLYETHYLENE GLYCOL 3350 (17GM) 1 DOSE PACK PO SCH (21:00)
[2018-07-16] MEDS: ENOXAPARIN 30MG/0.3ML SYR SUBCUT SCH (22:26)
[2018-07-17] VITALS (46 sets, daily range): BP systolic 110–154; BP diastolic 39–90
[2018-07-17] MEDS: IPRATROPIUM/ALBUTEROL 0.5-3(2.5)MG/3ML NEB HHN SCH ×6 (00:28→20:39)
[2018-07-17 05:58] LABS: HEMATOCRIT. 26.4 % (36.0-48.0); HEMOGLOBIN. 8.5 g/dL (12.0-16.0); MEAN CORPUSCULAR HEMOGLOBIN 28.8 pg (28.0-32.0); MEAN CORPUSCULAR VOLUME 89.5 fL (81.0-99.0); MEAN PLATELET VOLUME 9.2 fl (7.4-10.4); PLATELET 310 x1000/uL (130-400); RED BLOOD CELL COUNT 2.95 mill/uL (4.2-5.4); RED CELL DISTRIBUTION WIDTH 20.1 % (11.6-14.6)
[2018-07-17 06:15] LABS: CHLORIDE 93 mEq/L (98-107)
[2018-07-17 06:25] LABS: PHOSPHORUS 2.8 mg/dL (2.5-4.9)
[2018-07-17] MEDS: BLOOD SUGAR DIAGNOSTIC STRIP TEST SCH ×4 (06:38→20:43)
[2018-07-17] MEDS: METHYLPREDNISOLONE SOD SUCC 40 MG/ML VIAL IV SCH ×3 (06:38→21:23)
[2018-07-17] MEDS: INSULIN LISPRO 100 UNITS/ML SUBCUT SCH ×4 (06:42→20:40)
[2018-07-17 09:12] LABS: PLATELET ESTIMATE NORMAL
[2018-07-17] MEDS: TIMOLOL MALEATE 0.25% OPHTH DROPS 5ML EACHEYE SCH ×2 (09:48→20:16)
[2018-07-17] MEDS: LACTULOSE 20G/30ML UDC NG SCH (09:48)
[2018-07-17] MEDS: PANTOPRAZOLE SODIUM 40 MG/VIAL IV SCH ×2 (09:49→20:16)
[2018-07-17] MEDS: MESALAMINE 250MG CAPSULE EXTENDED RELEASE NG SCH ×4 (09:49→20:16)
[2018-07-17] MEDS: ASPIRIN 81MG EC TABLET PO SCH (09:49)
[2018-07-17] MEDS: DOCUSATE SODIUM SUGAR FREE 100MG/10ML UDC NG SCH ×2 (09:49→17:31)
[2018-07-17] MEDS: MAGNESIUM OXIDE 400MG TABLET NG SCH ×2 (09:49→17:32)
[2018-07-17] MEDS: METOPROLOL TARTRATE 50MG TABLET PO SCH ×2 (09:50→20:17)
[2018-07-17] MEDS: PILOCARPINE HCL 1% OPHTH DROPS 15ML BOTHEYE SCH ×2 (09:51→20:16)
[2018-07-17] MEDS: POTASSIUM-SODIUM PHOSPHATE POWDER PACKET PO SCH ×2 (09:56→17:31)
[2018-07-17] MEDS: CYANOCOBALAMIN 1000MCG/ML VIAL IM SCH (09:56)
[2018-07-17] MEDS: INSULIN GLARGINE UD 100 UNITS/ML SYR SUBCUT SCH ×2 (09:57→21:55)
[2018-07-17] MEDS: POLYETHYLENE GLYCOL 3350 (17GM) 1 DOSE PACK PO SCH (20:17)
[2018-07-17] MEDS: ENOXAPARIN 30MG/0.3ML SYR SUBCUT SCH (20:41)
[2018-07-18] VITALS (58 sets, daily range): BP systolic 85–165; BP diastolic 39–100
[2018-07-18] MEDS: IPRATROPIUM/ALBUTEROL 0.5-3(2.5)MG/3ML NEB HHN SCH ×6 (01:21→19:51)
[2018-07-18] MEDS: BLOOD SUGAR DIAGNOSTIC STRIP TEST SCH ×4 (06:07→21:47)
[2018-07-18] MEDS: INSULIN LISPRO 100 UNITS/ML SUBCUT SCH ×5 (06:07→22:00)
[2018-07-18] MEDS: METHYLPREDNISOLONE SOD SUCC 40 MG/ML VIAL IV SCH ×3 (06:08→21:44)
[2018-07-18 06:32] LABS: HEMATOCRIT. 26.1 % (36.0-48.0); HEMOGLOBIN. 8.6 g/dL (12.0-16.0); MEAN CORPUSCULAR HEMOGLOBIN 29.5 pg (28.0-32.0); MEAN CORPUSCULAR VOLUME 89.9 fL (81.0-99.0); MEAN PLATELET VOLUME 9.3 fl (7.4-10.4); PLATELET 363 x1000/uL (130-400); RED CELL DISTRIBUTION WIDTH 20.3 % (11.6-14.6)
[2018-07-18 07:09] LABS: CHLORIDE 93 mEq/L (98-107)
[2018-07-18 07:17] LABS: PHOSPHORUS 2.7 mg/dL (2.5-4.9)
[2018-07-18 08:22] LABS: BG BASE EXCESS 9.3 mmol/L (-2.0-2.0); BG CARBOXYHEMOGLOBIN 0.4 % (0.5-1.5); BG FRACTION INSPIRED OXYGEN 40; BG METHEMOGLOBIN 0.3 % (0.0-1.5); BG OXYHEMOGLOBIN 95.3 % (94.0-97.0); BG PCO2 47.3 mmHg (35.0-45.0); BG PH 7.474 (7.350-7.450); BG PO2 81.9 mmHg (75.0-100.0); BG PRESSURE SUPPORT 10; BG SAMPLE SITE RIGHT RADIAL; BG TIDAL VOLUME(mL) 500 mL; BG TOTAL HEMOGLOBIN 9.9 g/dL (12.0-18.0); BG VENT MODE VENT - SIMV; BG VENT RATE 6 set
[2018-07-18] MEDS: POTASSIUM-SODIUM PHOSPHATE POWDER PACKET PO SCH ×2 (09:47→17:30)
[2018-07-18] MEDS: ASPIRIN 81MG EC TABLET PO SCH (09:47)
[2018-07-18] MEDS: METOPROLOL TARTRATE 50MG TABLET PO SCH ×3 (09:47→22:00)
[2018-07-18] MEDS: TIMOLOL MALEATE 0.25% OPHTH DROPS 5ML EACHEYE SCH ×2 (09:47→21:49)
[2018-07-18] MEDS: LACTULOSE 20G/30ML UDC NG SCH (09:48)
[2018-07-18] MEDS: MESALAMINE 250MG CAPSULE EXTENDED RELEASE NG SCH ×4 (09:48→21:44)
[2018-07-18] MEDS: DOCUSATE SODIUM SUGAR FREE 100MG/10ML UDC NG SCH ×2 (09:48→17:30)
[2018-07-18] MEDS: PILOCARPINE HCL 1% OPHTH DROPS 15ML BOTHEYE SCH ×2 (09:48→21:49)
[2018-07-18] MEDS: PANTOPRAZOLE SODIUM 40 MG/VIAL IV SCH ×2 (09:48→21:44)
[2018-07-18] MEDS: MAGNESIUM OXIDE 400MG TABLET NG SCH ×2 (09:48→17:30)
[2018-07-18] MEDS: INSULIN GLARGINE UD 100 UNITS/ML SYR SUBCUT SCH ×2 (10:43→21:46)
[2018-07-18 13:37] LABS: PLATELET ESTIMATE NORMAL
[2018-07-18] MEDS: LORAZEPAM 2MG/ML CPJ IV PRN (13:53)
[2018-07-18] MEDS: ENOXAPARIN 30MG/0.3ML SYR SUBCUT SCH (21:00)
[2018-07-18] MEDS: POLYETHYLENE GLYCOL 3350 (17GM) 1 DOSE PACK PO SCH (21:55)
[2018-07-19] VITALS (48 sets, daily range): BP systolic 93–143; BP diastolic 40–91
[2018-07-19] MEDS: IPRATROPIUM/ALBUTEROL 0.5-3(2.5)MG/3ML NEB HHN SCH ×5 (00:28→20:21)
[2018-07-19] MEDS: BLOOD SUGAR DIAGNOSTIC STRIP TEST SCH ×4 (05:55→21:00)
[2018-07-19] MEDS: INSULIN LISPRO 100 UNITS/ML SUBCUT SCH ×3 (05:55→17:00)
[2018-07-19] MEDS: METHYLPREDNISOLONE SOD SUCC 40 MG/ML VIAL IV SCH ×3 (06:00→22:59)
[2018-07-19 06:13] LABS: HEMATOCRIT. 26.3 % (36.0-48.0); HEMOGLOBIN. 8.6 g/dL (12.0-16.0); MEAN CORPUSCULAR HEMOGLOBIN 29.5 pg (28.0-32.0); MEAN CORPUSCULAR VOLUME 90.8 fL (81.0-99.0); MEAN PLATELET VOLUME 9.2 fl (7.4-10.4); PLATELET 332 x1000/uL (130-400); RED CELL DISTRIBUTION WIDTH 20.2 % (11.6-14.6)
[2018-07-19 06:22] LABS: INR 1.2
[2018-07-19 06:25] LABS: CHLORIDE 92 mEq/L (98-107)
[2018-07-19 08:01] LABS: PLATELET ESTIMATE NORMAL
[2018-07-19] MEDS: METOPROLOL TARTRATE 50MG TABLET PO SCH (09:00)
[2018-07-19] MEDS: MESALAMINE 250MG CAPSULE EXTENDED RELEASE NG SCH ×4 (09:00→21:00)
[2018-07-19] MEDS: LACTULOSE 20G/30ML UDC NG SCH (09:00)
[2018-07-19] MEDS: MAGNESIUM OXIDE 400MG TABLET NG SCH ×2 (09:00→17:20)
[2018-07-19] MEDS: POTASSIUM-SODIUM PHOSPHATE POWDER PACKET PO SCH ×2 (09:00→17:20)
[2018-07-19] MEDS: ASPIRIN 81MG EC TABLET PO SCH (09:00)
[2018-07-19] MEDS: DOCUSATE SODIUM SUGAR FREE 100MG/10ML UDC NG SCH ×2 (09:00→17:20)
[2018-07-19] MEDS: PILOCARPINE HCL 1% OPHTH DROPS 15ML BOTHEYE SCH ×2 (09:12→21:00)
[2018-07-19] MEDS: TIMOLOL MALEATE 0.25% OPHTH DROPS 5ML EACHEYE SCH ×2 (09:12→21:00)
[2018-07-19] MEDS: PANTOPRAZOLE SODIUM 40 MG/VIAL IV SCH ×2 (09:12→21:00)
[2018-07-19] MEDS: INSULIN GLARGINE UD 100 UNITS/ML SYR SUBCUT SCH ×2 (09:13→22:59)
[2018-07-19] MEDS ORDERED: LIDOCAINE HCL/EPINEPHRINE 1%-EPI 1:100,000 20 ML VIAL ONE (13:35)
[2018-07-19] MEDS ORDERED: ROCURONIUM BROMIDE 10MG/ML VIAL 5ML IV ONE (14:17)
[2018-07-19] MEDS ORDERED: FENTANYL CITRATE/PF 50MCG/ML 2ML VIAL ONE (14:38)
[2018-07-19] MEDS ORDERED: NEOSTIGMINE METHYLSULFATE 1MG/ML 10 ML VIAL ONE (14:51)
[2018-07-19] MEDS ORDERED: GLYCOPYRROLATE 0.2 MG/ML 2ML VIAL ONE (14:51)
[2018-07-19 16:20] LABS: BG CARBOXYHEMOGLOBIN 0.7 % (0.5-1.5); BG DEOXYHEMOGLOBIN 3.5 % (0.0-5.0); BG FRACTION INSPIRED OXYGEN 40; BG HCO3 ACT 35.1 mmol/L (22.0-26.0); BG METHEMOGLOBIN 0.3 % (0.0-1.5); BG OXYGEN SATURATION 96.5 % (92.0-98.5); BG OXYHEMOGLOBIN 95.5 % (94.0-97.0); BG PCO2 50.7 mmHg (35.0-45.0); BG PH 7.458 (7.350-7.450); BG PO2 85.4 mmHg (75.0-100.0); BG PRESSURE SUPPORT 10; BG SAMPLE SITE RIGHT BRACHIAL; BG TIDAL VOLUME(mL) 350 mL; BG TOTAL HEMOGLOBIN 9.2 g/dL (12.0-18.0); BG VENT MODE VENT - SIMV; BG VENT RATE 16 set
[2018-07-19] MEDS: ENOXAPARIN 30MG/0.3ML SYR SUBCUT SCH (21:00)
[2018-07-19] MEDS: POLYETHYLENE GLYCOL 3350 (17GM) 1 DOSE PACK PO SCH (21:00)
[2018-07-20] VITALS (50 sets, daily range): BP systolic 93–169; BP diastolic 51–109
[2018-07-20] MEDS: IPRATROPIUM/ALBUTEROL 0.5-3(2.5)MG/3ML NEB HHN SCH ×6 (00:04→21:05)
[2018-07-20] MEDS: METHYLPREDNISOLONE SOD SUCC 40 MG/ML VIAL IV SCH ×3 (06:39→21:00)
[2018-07-20] MEDS: BLOOD SUGAR DIAGNOSTIC STRIP TEST SCH ×4 (06:39→20:26)
[2018-07-20] MEDS: INSULIN LISPRO 100 UNITS/ML SUBCUT SCH ×4 (06:40→20:43)
[2018-07-20 06:44] LABS: HEMATOCRIT. 28.1 % (36.0-48.0); HEMOGLOBIN. 9.1 g/dL (12.0-16.0); MEAN CORPUSCULAR HEMOGLOBIN 29.4 pg (28.0-32.0); MEAN CORPUSCULAR VOLUME 90.4 fL (81.0-99.0); MEAN PLATELET VOLUME 9.4 fl (7.4-10.4); PLATELET 382 x1000/uL (130-400)
[2018-07-20 06:45] LABS: CHLORIDE 95 mEq/L (98-107)
[2018-07-20 06:52] LABS: PHOSPHORUS 3.2 mg/dL (2.5-4.9)
[2018-07-20 07:38] LABS: PLATELET ESTIMATE NORMAL
[2018-07-20 08:41] LABS: BG BASE EXCESS 7.5 mmol/L (-2.0-2.0); BG CARBOXYHEMOGLOBIN 0.6 % (0.5-1.5); BG DEOXYHEMOGLOBIN 4.6 % (0.0-5.0); BG FRACTION INSPIRED OXYGEN 40; BG HCO3 ACT 31.8 mmol/L (22.0-26.0); BG METHEMOGLOBIN 0.1 % (0.0-1.5); BG OXYGEN SATURATION 95.4 % (92.0-98.5); BG OXYHEMOGLOBIN 94.7 % (94.0-97.0); BG PCO2 44.1 mmHg (35.0-45.0); BG PH 7.476 (7.350-7.450); BG PO2 76.8 mmHg (75.0-100.0); BG PRESSURE SUPPORT 10; BG SAMPLE SITE RIGHT BRACHIAL; BG TIDAL VOLUME(mL) 350 mL; BG TOTAL HEMOGLOBIN 9.6 g/dL (12.0-18.0); BG VENT MODE VENT - SIMV; BG VENT RATE 16 set
[2018-07-20] MEDS: POTASSIUM-SODIUM PHOSPHATE POWDER PACKET PO SCH ×2 (09:00→17:59)
[2018-07-20] MEDS: MAGNESIUM OXIDE 400MG TABLET NG SCH ×2 (09:00→17:59)
[2018-07-20] MEDS: ASPIRIN 81MG EC TABLET PO SCH (09:00)
[2018-07-20] MEDS: DOCUSATE SODIUM SUGAR FREE 100MG/10ML UDC NG SCH ×2 (09:47→17:59)
[2018-07-20] MEDS: PANTOPRAZOLE SODIUM 40 MG/VIAL IV SCH ×2 (09:47→20:25)
[2018-07-20] MEDS: LACTULOSE 20G/30ML UDC NG SCH (09:47)
[2018-07-20] MEDS: TIMOLOL MALEATE 0.25% OPHTH DROPS 5ML EACHEYE SCH ×2 (09:48→20:24)
[2018-07-20] MEDS: METOPROLOL TARTRATE 50MG TABLET PO SCH ×2 (09:48→20:44)
[2018-07-20] MEDS: PILOCARPINE HCL 1% OPHTH DROPS 15ML BOTHEYE SCH ×2 (09:48→20:25)
[2018-07-20] MEDS: MESALAMINE 250MG CAPSULE EXTENDED RELEASE NG SCH ×4 (09:49→20:26)
[2018-07-20] MEDS: INSULIN GLARGINE UD 100 UNITS/ML SYR SUBCUT SCH ×2 (09:50→21:00)
[2018-07-20] MEDS: ENOXAPARIN 30MG/0.3ML SYR SUBCUT SCH (20:25)
[2018-07-20] MEDS: POLYETHYLENE GLYCOL 3350 (17GM) 1 DOSE PACK PO SCH (20:26)
[2018-07-21] VITALS (47 sets, daily range): BP systolic 115–157; BP diastolic 43–95
[2018-07-21] MEDS: IPRATROPIUM/ALBUTEROL 0.5-3(2.5)MG/3ML NEB HHN SCH ×6 (00:46→20:11)
[2018-07-21 05:49] LABS: CHLORIDE 95 mEq/L (98-107)
[2018-07-21 05:51] LABS: HEMATOCRIT. 29.6 % (36.0-48.0); HEMOGLOBIN. 9.4 g/dL (12.0-16.0); MEAN CORPUSCULAR VOLUME 91.4 fL (81.0-99.0); MEAN PLATELET VOLUME 9.2 fl (7.4-10.4); PLATELET 378 x1000/uL (130-400); RED BLOOD CELL COUNT 3.23 mill/uL (4.2-5.4); RED CELL DISTRIBUTION WIDTH 22.1 % (11.6-14.6)
[2018-07-21] MEDS: BLOOD SUGAR DIAGNOSTIC STRIP TEST SCH ×4 (05:56→20:28)
[2018-07-21 05:57] LABS: PHOSPHORUS 2.5 mg/dL (2.5-4.9)
[2018-07-21] MEDS: METHYLPREDNISOLONE SOD SUCC 40 MG/ML VIAL IV SCH ×3 (06:02→20:27)
[2018-07-21] MEDS: INSULIN LISPRO 100 UNITS/ML SUBCUT SCH ×4 (06:02→20:28)
[2018-07-21 08:00] LABS: PLATELET ESTIMATE NORMAL
[2018-07-21] MEDS: ASPIRIN 81MG EC TABLET PO SCH (09:00)
[2018-07-21 09:12] LABS: BG BASE EXCESS 1.4 mmol/L (-2.0-2.0); BG CARBOXYHEMOGLOBIN 0.7 % (0.5-1.5); BG DEOXYHEMOGLOBIN 5.3 % (0.0-5.0); BG FRACTION INSPIRED OXYGEN 40; BG HCO3 ACT 25.6 mmol/L (22.0-26.0); BG METHEMOGLOBIN 0.3 % (0.0-1.5); BG OXYGEN SATURATION 94.6 % (92.0-98.5); BG OXYHEMOGLOBIN 93.7 % (94.0-97.0); BG PCO2 37.7 mmHg (35.0-45.0); BG PH 7.449 (7.350-7.450); BG PO2 79.4 mmHg (75.0-100.0); BG SAMPLE SITE RIGHT BRACHIAL; BG TIDAL VOLUME(mL) 350 mL; BG TOTAL HEMOGLOBIN 4.8 g/dL (12.0-18.0); BG VENT MODE VENT - SIMV; BG VENT RATE 16 set
[2018-07-21] MEDS: MESALAMINE 250MG CAPSULE EXTENDED RELEASE NG SCH ×4 (09:18→20:28)
[2018-07-21] MEDS: PANTOPRAZOLE SODIUM 40 MG/VIAL IV SCH ×2 (09:18→20:27)
[2018-07-21] MEDS: DOCUSATE SODIUM SUGAR FREE 100MG/10ML UDC NG SCH ×2 (09:18→18:11)
[2018-07-21] MEDS: POTASSIUM-SODIUM PHOSPHATE POWDER PACKET PO SCH ×2 (09:19→18:14)
[2018-07-21] MEDS: METOPROLOL TARTRATE 50MG TABLET PO SCH ×2 (09:19→20:28)
[2018-07-21] MEDS: MAGNESIUM OXIDE 400MG TABLET NG SCH ×2 (09:20→18:11)
[2018-07-21] MEDS: INSULIN GLARGINE UD 100 UNITS/ML SYR SUBCUT SCH ×2 (09:22→21:21)
[2018-07-21] MEDS: PILOCARPINE HCL 1% OPHTH DROPS 15ML BOTHEYE SCH ×2 (09:22→20:29)
[2018-07-21] MEDS: LACTULOSE 20G/30ML UDC NG SCH (09:22)
[2018-07-21] MEDS: TIMOLOL MALEATE 0.25% OPHTH DROPS 5ML EACHEYE SCH ×2 (09:22→20:29)
[2018-07-21] MEDS ORDERED: VANCOMYCIN 1 G PREMIX 200 ML IV SCH (13:00)
[2018-07-21] MEDS: PIPERACILLIN/TAZ 2.25G PREMIX 50 ML IV SCH ×3 (14:58→23:45)
[2018-07-21] MEDS ORDERED: PIPERACILLIN/TAZOBACTAM 3.375 G in DEXT 5% WATER 100 ML IV SCH (18:00)
[2018-07-21] MEDS: ENOXAPARIN 30MG/0.3ML SYR SUBCUT SCH (20:28)
[2018-07-21] MEDS: POLYETHYLENE GLYCOL 3350 (17GM) 1 DOSE PACK PO SCH (20:28)
[2018-07-22] VITALS (50 sets, daily range): BP systolic 109–164; BP diastolic 44–79
[2018-07-22] MEDS: IPRATROPIUM/ALBUTEROL 0.5-3(2.5)MG/3ML NEB HHN SCH ×6 (00:27→20:24)
[2018-07-22] MEDS: BLOOD SUGAR DIAGNOSTIC STRIP TEST SCH ×4 (05:36→21:00)
[2018-07-22] MEDS: METHYLPREDNISOLONE SOD SUCC 40 MG/ML VIAL IV SCH ×3 (05:40→22:50)
[2018-07-22] MEDS: PIPERACILLIN/TAZ 2.25G PREMIX 50 ML IV SCH ×3 (05:40→18:57)
[2018-07-22 05:59] LABS: HEMATOCRIT. 28.6 % (36.0-48.0); HEMOGLOBIN. 9.1 g/dL (12.0-16.0); MEAN CORPUSCULAR VOLUME 90.6 fL (81.0-99.0); MEAN PLATELET VOLUME 9.8 fl (7.4-10.4); PLATELET 390 x1000/uL (130-400); RED BLOOD CELL COUNT 3.15 mill/uL (4.2-5.4); RED CELL DISTRIBUTION WIDTH 22.1 % (11.6-14.6)
[2018-07-22] MEDS: VANCOMYCIN 750 MG PREMIX 150 ML IV SCH (06:02)
[2018-07-22] MEDS: INSULIN LISPRO 100 UNITS/ML SUBCUT SCH ×4 (06:03→22:55)
[2018-07-22 07:22] LABS: PHOSPHORUS 2.4 mg/dL (2.5-4.9)
[2018-07-22] MEDS: LACTULOSE 20G/30ML UDC NG SCH (08:39)
[2018-07-22] MEDS: PANTOPRAZOLE SODIUM 40 MG/VIAL IV SCH ×2 (08:39→22:27)
[2018-07-22] MEDS: DOCUSATE SODIUM SUGAR FREE 100MG/10ML UDC NG SCH ×2 (08:39→18:38)
[2018-07-22] MEDS: MAGNESIUM OXIDE 400MG TABLET NG SCH ×2 (08:39→18:38)
[2018-07-22] MEDS: POTASSIUM-SODIUM PHOSPHATE POWDER PACKET PO SCH ×2 (08:39→18:38)
[2018-07-22] MEDS: METOPROLOL TARTRATE 50MG TABLET PO SCH ×2 (08:40→22:29)
[2018-07-22] MEDS: MESALAMINE 250MG CAPSULE EXTENDED RELEASE NG SCH ×4 (08:40→22:36)
[2018-07-22] MEDS: ASPIRIN 81MG EC TABLET PO SCH (08:41)
[2018-07-22] MEDS: TIMOLOL MALEATE 0.25% OPHTH DROPS 5ML EACHEYE SCH ×2 (08:41→22:36)
[2018-07-22] MEDS: PILOCARPINE HCL 1% OPHTH DROPS 15ML BOTHEYE SCH ×2 (08:41→22:36)
[2018-07-22 09:59] LABS: BG BASE EXCESS 8.3 mmol/L (-2.0-2.0); BG CARBOXYHEMOGLOBIN 0.2 % (0.5-1.5); BG DEOXYHEMOGLOBIN 3.2 % (0.0-5.0); BG FRACTION INSPIRED OXYGEN 40; BG HCO3 ACT 33.4 mmol/L (22.0-26.0); BG METHEMOGLOBIN 0.3 % (0.0-1.5); BG OXYGEN SATURATION 96.8 % (92.0-98.5); BG OXYHEMOGLOBIN 96.3 % (94.0-97.0); BG PCO2 49.2 mmHg (35.0-45.0); BG PH 7.449 (7.350-7.450); BG PO2 89.1 mmHg (75.0-100.0); BG PRESSURE SUPPORT 10; BG SAMPLE SITE RIGHT RADIAL; BG TIDAL VOLUME(mL) 350 mL; BG TOTAL HEMOGLOBIN 9.2 g/dL (12.0-18.0); BG VENT MODE VENT - SIMV; BG VENT RATE 16 set
[2018-07-22] MEDS: INSULIN GLARGINE UD 100 UNITS/ML SYR SUBCUT SCH ×2 (10:56→22:53)
[2018-07-22 13:25] LABS: PLATELET ESTIMATE NORMAL
[2018-07-22] MEDS: POLYETHYLENE GLYCOL 3350 (17GM) 1 DOSE PACK PO SCH (22:29)
[2018-07-22] MEDS: ENOXAPARIN 30MG/0.3ML SYR SUBCUT SCH (22:32)
[2018-07-23] VITALS (12 sets, daily range): BP systolic 110–135; BP diastolic 27–85
[2018-07-23] MEDS: IPRATROPIUM/ALBUTEROL 0.5-3(2.5)MG/3ML NEB HHN SCH ×6 (00:49→20:51)
[2018-07-23] MEDS: PIPERACILLIN/TAZ 2.25G PREMIX 50 ML IV SCH ×4 (01:41→18:11)
[2018-07-23] MEDS: VANCOMYCIN 750 MG PREMIX 150 ML IV SCH (02:12)
[2018-07-23] MEDS: METHYLPREDNISOLONE SOD SUCC 40 MG/ML VIAL IV SCH ×3 (07:10→21:59)
[2018-07-23] MEDS: BLOOD SUGAR DIAGNOSTIC STRIP TEST SCH (07:30)
[2018-07-23] MEDS: INSULIN LISPRO 100 UNITS/ML SUBCUT SCH ×4 (08:00→22:13)
[2018-07-23 08:30] LABS: BG BASE EXCESS 8.1 mmol/L (-2.0-2.0); BG CARBOXYHEMOGLOBIN 0.5 % (0.5-1.5); BG DEOXYHEMOGLOBIN 4.4 % (0.0-5.0); BG FRACTION INSPIRED OXYGEN 40; BG HCO3 ACT 32.1 mmol/L (22.0-26.0); BG METHEMOGLOBIN 0.3 % (0.0-1.5); BG OXYGEN SATURATION 95.6 % (92.0-98.5); BG OXYHEMOGLOBIN 94.8 % (94.0-97.0); BG PCO2 42.6 mmHg (35.0-45.0); BG PH 7.495 (7.350-7.450); BG PO2 76.1 mmHg (75.0-100.0); BG PRESSURE SUPPORT 107; BG SAMPLE SITE RIGHT RADIAL; BG TIDAL VOLUME(mL) 450 mL; BG TOTAL HEMOGLOBIN 9.2 g/dL (12.0-18.0); BG VENT MODE VENT - SIMV; BG VENT RATE 16 set
[2018-07-23] MEDS: LACTULOSE 20G/30ML UDC NG SCH (09:51)
[2018-07-23] MEDS: DOCUSATE SODIUM SUGAR FREE 100MG/10ML UDC NG SCH ×2 (09:51→18:10)
[2018-07-23] MEDS: ACETAMINOPHEN 325MG TABLET PO PRN (09:52)
[2018-07-23] MEDS: PANTOPRAZOLE SODIUM 40 MG/VIAL IV SCH ×2 (09:52→21:59)
[2018-07-23] MEDS: MAGNESIUM OXIDE 400MG TABLET NG SCH ×2 (09:52→18:11)
[2018-07-23] MEDS: ASPIRIN 81MG EC TABLET PO SCH (09:53)
[2018-07-23] MEDS: POTASSIUM-SODIUM PHOSPHATE POWDER PACKET PO SCH ×2 (09:53→18:11)
[2018-07-23] MEDS: METOPROLOL TARTRATE 50MG TABLET PO SCH ×2 (09:54→21:57)
[2018-07-23] MEDS: TIMOLOL MALEATE 0.25% OPHTH DROPS 5ML EACHEYE SCH ×2 (10:22→21:42)
[2018-07-23] MEDS: PILOCARPINE HCL 1% OPHTH DROPS 15ML BOTHEYE SCH ×2 (10:25→21:42)
[2018-07-23] MEDS: MESALAMINE 250MG CAPSULE EXTENDED RELEASE NG SCH ×4 (10:32→21:42)
[2018-07-23] MEDS: INSULIN GLARGINE UD 100 UNITS/ML SYR SUBCUT SCH ×2 (10:33→22:10)
[2018-07-23 11:29] LABS: HEMOGLOBIN. 8.3 g/dL (12.0-16.0); MEAN CORPUSCULAR VOLUME 90.7 fL (81.0-99.0); MEAN PLATELET VOLUME 9.4 fl (7.4-10.4); PLATELET 340 x1000/uL (130-400); RED BLOOD CELL COUNT 2.75 mill/uL (4.2-5.4); RED CELL DISTRIBUTION WIDTH 21.5 % (11.6-14.6)
[2018-07-23 11:42] LABS: CHLORIDE 94 mEq/L (98-107)
[2018-07-23 13:20] LABS: PLATELET ESTIMATE NORMAL
[2018-07-23] MEDS ORDERED: VANCOMYCIN 750 MG PREMIX 150 ML IV SCH (18:00)
[2018-07-23] MEDS: ENOXAPARIN 30MG/0.3ML SYR SUBCUT SCH (21:56)
[2018-07-23] MEDS: POLYETHYLENE GLYCOL 3350 (17GM) 1 DOSE PACK PO SCH (21:56)
[2018-07-24] VITALS (17 sets, daily range): BP systolic 93–158; BP diastolic 32–78
[2018-07-24] MEDS: PIPERACILLIN/TAZ 2.25G PREMIX 50 ML IV SCH ×4 (00:14→18:30)
[2018-07-24] MEDS: IPRATROPIUM/ALBUTEROL 0.5-3(2.5)MG/3ML NEB HHN SCH ×6 (00:58→20:49)
[2018-07-24] MEDS: METHYLPREDNISOLONE SOD SUCC 40 MG/ML VIAL IV SCH ×3 (05:42→21:26)
[2018-07-24] MEDS: INSULIN LISPRO 100 UNITS/ML SUBCUT SCH ×4 (08:00→21:52)
[2018-07-24] MEDS ORDERED: DEXTROSE 50% WATER 50ML SYRINGE IV PRN (08:45)
[2018-07-24] MEDS: DEXT 5%/0.45% NACL 1000ML 1,000 ML IV SCH ×2 (08:56→21:52)
[2018-07-24] MEDS: DOCUSATE SODIUM SUGAR FREE 100MG/10ML UDC NG SCH ×2 (09:00→16:47)
[2018-07-24] MEDS: POTASSIUM-SODIUM PHOSPHATE POWDER PACKET PO SCH ×2 (09:00→16:47)
[2018-07-24] MEDS: MAGNESIUM OXIDE 400MG TABLET NG SCH ×2 (09:00→16:47)
[2018-07-24] MEDS: ASPIRIN 81MG EC TABLET PO SCH (09:00)
[2018-07-24] MEDS: LACTULOSE 20G/30ML UDC NG SCH (09:00)
[2018-07-24] MEDS: INSULIN GLARGINE UD 100 UNITS/ML SYR SUBCUT SCH ×2 (10:00→21:53)
[2018-07-24] MEDS: CYANOCOBALAMIN 1000MCG/ML VIAL IM SCH (10:16)
[2018-07-24] MEDS: PANTOPRAZOLE SODIUM 40 MG/VIAL IV SCH (10:16)
[2018-07-24] MEDS: METOPROLOL TARTRATE 50MG TABLET PO SCH ×2 (10:17→21:00)
[2018-07-24] MEDS: MESALAMINE 250MG CAPSULE EXTENDED RELEASE NG SCH ×4 (10:17→21:51)
[2018-07-24] MEDS ORDERED: SODIUM CHLORIDE 0.9% 10ML VIAL ONE (16:06)
[2018-07-24] MEDS ORDERED: SIMETHICONE 40 MG/0.6 ML 30ML ONE (16:06)
[2018-07-24] MEDS ORDERED: MIDAZOLAM HCL 5 MG/5 ML VIAL ONE (18:25)
[2018-07-24] MEDS ORDERED: FENTANYL CITRATE/PF 50MCG/ML 2ML VIAL ONE (18:26)
[2018-07-24] MEDS ORDERED: MIDAZOLAM HCL 2 MG/2 ML VIAL IV PRN (18:40)
[2018-07-24] MEDS ORDERED: FLUMAZENIL 0.1 MG/ML 5ML VIAL IV NR (19:07)
[2018-07-24] MEDS ORDERED: SODIUM CHLORIDE 0.9% 250 ML IV ONE (20:15)
[2018-07-25] VITALS (16 sets, daily range): BP systolic 98–157; BP diastolic 29–96
[2018-07-25] MEDS: IPRATROPIUM/ALBUTEROL 0.5-3(2.5)MG/3ML NEB HHN SCH ×6 (00:36→20:27)
[2018-07-25] MEDS: PIPERACILLIN/TAZ 2.25G PREMIX 50 ML IV SCH ×4 (00:56→17:43)
[2018-07-25] MEDS: POLYETHYLENE GLYCOL 3350 (17GM) 1 DOSE PACK PO SCH (01:20)
[2018-07-25] MEDS: PANTOPRAZOLE SODIUM 40 MG/VIAL IV SCH ×3 (01:20→21:37)
[2018-07-25] MEDS: METHYLPREDNISOLONE SOD SUCC 40 MG/ML VIAL IV SCH ×3 (06:10→21:37)
[2018-07-25] MEDS: METOPROLOL TARTRATE 50MG TABLET PO SCH ×3 (09:00→21:00)
[2018-07-25] MEDS: DOCUSATE SODIUM SUGAR FREE 100MG/10ML UDC NG SCH (09:00)
[2018-07-25] MEDS: LACTULOSE 20G/30ML UDC NG SCH (09:21)
[2018-07-25] MEDS: MAGNESIUM OXIDE 400MG TABLET NG SCH ×2 (09:21→17:43)
[2018-07-25] MEDS: ASPIRIN 81MG EC TABLET PO SCH (09:22)
[2018-07-25] MEDS: MESALAMINE 250MG CAPSULE EXTENDED RELEASE NG SCH ×4 (09:27→21:37)
[2018-07-25] MEDS: INSULIN LISPRO 100 UNITS/ML SUBCUT SCH ×4 (09:28→21:00)
[2018-07-25] MEDS: POTASSIUM-SODIUM PHOSPHATE POWDER PACKET PO SCH ×2 (09:29→17:43)
[2018-07-25 09:46] LABS: HEMATOCRIT. 25.7 % (36.0-48.0); HEMOGLOBIN. 8.2 g/dL (12.0-16.0); MEAN CORPUSCULAR HEMOGLOBIN 29.1 pg (28.0-32.0); MEAN CORPUSCULAR VOLUME 91.6 fL (81.0-99.0); MEAN PLATELET VOLUME 9.5 fl (7.4-10.4); PLATELET 337 x1000/uL (130-400); RED CELL DISTRIBUTION WIDTH 21.7 % (11.6-14.6)
[2018-07-25 09:47] LABS: BG BASE EXCESS 4.8 mmol/L (-2.0-2.0); BG CARBOXYHEMOGLOBIN 0.5 % (0.5-1.5); BG DEOXYHEMOGLOBIN 9.8 % (0.0-5.0); BG FRACTION INSPIRED OXYGEN 40; BG HCO3 ACT 28.9 mmol/L (22.0-26.0); BG METHEMOGLOBIN 0.1 % (0.0-1.5); BG OXYGEN SATURATION 90.1 % (92.0-98.5); BG OXYHEMOGLOBIN 89.6 % (94.0-97.0); BG PCO2 40.9 mmHg (35.0-45.0); BG PH 7.467 (7.350-7.450); BG PO2 59.5 mmHg (75.0-100.0); BG PRESSURE SUPPORT 10; BG SAMPLE SITE LEFT RADIAL; BG TIDAL VOLUME(mL) 450 mL; BG VENT MODE VENT - SIMV; BG VENT RATE 16 set
[2018-07-25 09:49] LABS: CHLORIDE 94 mEq/L (98-107)
[2018-07-25] MEDS ORDERED: POTASSIUM CHLORIDE 20MEQ/PACKET PEG NR ×2 (11:30→15:30)
[2018-07-25] MEDS: DEXT 5%/0.45% NACL 1000ML 1,000 ML IV SCH (11:51)
[2018-07-25] MEDS: INSULIN GLARGINE UD 100 UNITS/ML SYR SUBCUT SCH ×2 (12:49→22:22)
[2018-07-25 13:38] LABS: PLATELET ESTIMATE NORMAL
[2018-07-25] MEDS: ACETAMINOPHEN 325MG TABLET PO PRN (22:15)
[2018-07-26] VITALS: BP 112/41
[2018-07-26] MEDS: IPRATROPIUM/ALBUTEROL 0.5-3(2.5)MG/3ML NEB HHN SCH (00:17)
== END 2018-07-26 02:05 | disposition short-term general hospital (02) | DRG 3 ==
LOC: ER 07:38 → 6EST 09:22 → EDBEDREQTM 09:24 → EDBEDREQ 09:24 → ENRESERV 09:51 → 6WST 06-29 10:43 → MICUSO 07-05 12:42 → 5EST 07-22 14:36
PROVIDERS: ADMIT Internal Medicine Pulmonary Disease; ATTEND Internal Medicine Pulmonary Disease
PROC: 0DH68UZ Insertion of Feeding Device into Stomach, Via Natural or Artificial Opening Endoscopic (ICD-10-PCS; 2018-06-23)
PROC: 0QH606Z Insertion of Intramedullary Internal Fixation Device into Right Upper Femur, Open Approach (ICD-10-PCS; principal; 2018-06-28)
PROC: 5A1955Z Respiratory Ventilation, Greater than 96 Consecutive Hours (ICD-10-PCS; 2018-07-05)
PROC: 02HV33Z Insertion of Infusion Device into Superior Vena Cava, Percutaneous Approach (ICD-10-PCS; 2018-07-05)
PROC: 5A12012 Performance of Cardiac Output, Single, Manual (ICD-10-PCS; 2018-07-05)
PROC: 0BH17EZ Insertion of Endotracheal Airway into Trachea, Via Natural or Artificial Opening (ICD-10-PCS; 2018-07-05)
PROC: 4A00X4Z Measurement of Central Nervous Electrical Activity, External Approach (ICD-10-PCS; 2018-07-05)
PROC: B548ZZA Ultrasonography of Superior Vena Cava, Guidance (ICD-10-PCS; 2018-07-05)
PROC: 0B113F4 Bypass Trachea to Cutaneous with Tracheostomy Device, Percutaneous Approach (ICD-10-PCS; 2018-07-19)
DX: S72.141A Displaced intertrochanteric fracture of right femur, initial encounter for closed fracture (principal); E43 Unspecified severe protein-calorie malnutrition; G92 Toxic encephalopathy; J96.02 Acute respiratory failure with hypercapnia; J96.01 Acute respiratory failure with hypoxia; I46.9 Cardiac arrest, cause unspecified; D68.9 Coagulation defect, unspecified; N39.0 Urinary tract infection, site not specified; Z99.11 Dependence on respirator [ventilator] status; E22.2 Syndrome of inappropriate secretion of antidiuretic hormone; G93.1 Anoxic brain damage, not elsewhere classified; I10 Essential (primary) hypertension; J44.9 Chronic obstructive pulmonary disease, unspecified; E11.9 Type 2 diabetes mellitus without complications; E78.5 Hyperlipidemia, unspecified; J84.10 Pulmonary fibrosis, unspecified; H40.9 Unspecified glaucoma; H54.61 Unqualified visual loss, right eye, normal vision left eye; M17.11 Unilateral primary osteoarthritis, right knee; W01.0XXA Fall on same level from slipping, tripping and stumbling without subsequent striking against object, initial encounter; E83.42 Hypomagnesemia; E87.6 Hypokalemia; I25.10 Atherosclerotic heart disease of native coronary artery without angina pectoris; Z96.1 Presence of intraocular lens; H54.40 Blindness, one eye, unspecified eye; I48.91 Unspecified atrial fibrillation; E78.00 Pure hypercholesterolemia, unspecified; E11.36 Type 2 diabetes mellitus with diabetic cataract; M47.816 Spondylosis without myelopathy or radiculopathy, lumbar region; M81.0 Age-related osteoporosis without current pathological fracture; E11.65 Type 2 diabetes mellitus with hyperglycemia; E87.5 Hyperkalemia; E83.39 Other disorders of phosphorus metabolism; K52.831 Collagenous colitis; K44.9 Diaphragmatic hernia without obstruction or gangrene; K29.70 Gastritis, unspecified, without bleeding; K21.9 Gastro-esophageal reflux disease without esophagitis; I48.0 Paroxysmal atrial fibrillation; F03.90 Unspecified dementia, unspecified severity, without behavioral disturbance, psychotic disturbance, mood disturbance, and anxiety; J84.112 Idiopathic pulmonary fibrosis; K76.89 Other specified diseases of liver; B96.5 Pseudomonas (aeruginosa) (mallei) (pseudomallei) as the cause of diseases classified elsewhere; L89.152 Pressure ulcer of sacral region, stage 2; K52.9 Noninfective gastroenteritis and colitis, unspecified; R13.12 Dysphagia, oropharyngeal phase; Z79.4 Long term (current) use of insulin; Z90.49 Acquired absence of other specified parts of digestive tract; Z87.891 Personal history of nicotine dependence; Z85.51 Personal history of malignant neoplasm of bladder; I25.2 Old myocardial infarction; Z98.42 Cataract extraction status, left eye; Z98.41 Cataract extraction status, right eye; Z95.5 Presence of coronary angioplasty implant and graft; Z79.84 Long term (current) use of oral hypoglycemic drugs; Z79.82 Long term (current) use of aspirin; Z87.440 Personal history of urinary (tract) infections; Y92.009 Unspecified place in unspecified non-institutional (private) residence as the place of occurrence of the external cause; Z79.899 Other long term (current) drug therapy; C44.90 Unspecified malignant neoplasm of skin, unspecified
CPT/HCPCS: 31500; 36415; 36569; 36600; 70551; 71045; 72170; 73502; 73552; 76700; 76937; 78580; 80048; 80061; 80076; 80202; 82140; 82306; 82375; 82533; 82550; 82553; 82570; 82607; 82670; 82746; 82805; 82962; 83001; 83002; 83036; 83540; 83550; 83735; 83880; 83930; 83935; 84100; 84134; 84145; 84146; 84300; 84439; 84443; 84478; 84481; 84484; 85379; 86340; 86850; 86900; 87070; 87077; 87186; 88108; 92610; 93005; 93306; 93970; 94002; 94003; 94640; 96374; 96375; 97110; 97162; 97164; 97166; 97168; 97530; 97535; 99285; A6261; C1713; C1725; C1769; C9113; J0171; J0461; J0692; J1100; J1160; J1170; J1650; J1815; J1885; J2060; J2175; J2250; J2270; J2370; J2543; J2704; J2710; J2765; J2920; J2930; J3010; J3370; J3420; J3430; J3475; J3480; J3490; J7040; J7050; J7060; J7620; Q0167; A4315